=== PATIENT | male | born 1960 | race Caucasian/White ===

== ENCOUNTER 2018-12-14 00:09 | Emergency (ER) | payer MEDICAID, SELFPAY ==
[2018-12-14 00:12] VITALS: BP 192/88; PULSE 108; RESP 20; TEMP 36.6; O2SAT 98
--- NOTE | 2018-12-14 00:26 | W.ED.GENAD ---
Discharge Plan Disposition Patient Disposition: HOME Condition: Good Discharge Details Chief Complaint: GenMedical Clinical Impression: Elevated blood pressure reading with diagnosis of hypertension Primary Care Provider: Satish uRiz ED Provider: Kendall Moeller Meds and New Rx's Prescriptions: Continued aspirin [Aspir-81] 81 MG tablet,delayed release (DR/EC) 1 tab PO DAILY RF: 0 nitroglycerin [Nitrostat] 0.4 MG tablet, sublingual 1 tab PO PRN PRNRF: 0 lisinopril 30 MG tablet 1 tab PO DAILY RF: 0 metoprolol tartrate 25 MG tablet 50 tab PO DAILY RF: 0 multivitamin [One Daily] 1 EACH tablet 1 ea PO DAILY RF: 0 atorvastatin [Lipitor] 40 MG tablet 40 mg PO QPM RF: 0 Discharge Instructions Instructions: Hypertension (ED) Additional Instructions: Continue your current medications. Realize that blood pressure goes up with stress, anxiety, pain. Readings will also vary throughout the day and with activity. Follow-up with primary care next week if continue to get elevated readings. Return to ED if you develop headache, neurologic symptoms, chest pain, shortness of breath Referrals: Satish Ruiz [Primary Care Provider] - Medical Decision Making Patient's blood pressure is a little elevated here. However, he has an otherwise normal exam. His neurologic exam is normal. He is not having chest pain. An EKG is a slight sinus tachycardia. There is some inferior Q waves and some nonspecific ST changes but they are unchanged from previous EKG last year patient reassured. Blood pressure is coming down on its own without intervention. I think he is safe for discharge home to continue his current medications as before. Follow-up with primary care as needed next week if continues to have elevated pressures. Return to ED if he develops neurologic changes, chest pain, shortness of breath. ECG Data Attestation: I personally reviewed and interpreted this ECG (s) as follows: Prior ECG tracings: available for review Interpretation: Sinus tach at 103 normal axis and intervals. Nonspecific ST changes. Nothing acute HPI General Mode of arrival: ambulatory. Date/Time Provider Initiated Documentation: 12/14/18 00:26. Limitations to Documentation: no limitations. Information obtained by: patient. HPI Narrative: Patient presents to ED with complaint of high blood pressure. Patient reports taking his atorvastatin tonight. He inadvertently chewed it. Since that time his blood pressures been elevated. He does admit that he was concerned about chewing the pill. Other than feeling lightheaded he has no other symptoms. States taking his blood pressure was at home at the top number greater than 220. He actually just saw his primary care this week and his blood pressure was normal. Related Data Home Medications Medication Instructions Recorded Confirmed aspirin [Aspir-81] 1 tab PO DAILY 05/13/16 12/14/18 lisinopril 1 tab PO DAILY 05/13/16 12/14/18 metoprolol tartrate 50 tab PO DAILY 05/13/16 12/14/18 nitroglycerin [Nitrostat] 1 tab PO PRN PRN 05/13/16 12/14/18 atorvastatin [Lipitor] 40 mg PO QPM 01/15/17 12/14/18 multivitamin [One Daily] 1 ea PO DAILY 01/15/17 12/14/18 Allergies Allergy/AdvReac Type Severity Reaction Status Date / Time No Known Allergies Allergy Unverified 12/14/18 00:15 General Stated Complaint: GenMedical YULIANA: 4 Review of Systems Constitutional Denies chills, Denies fever(s), Denies headache(s) and Denies weakness Eyes Denies change in vision, Denies loss of vision and Denies eye pain ENT Denies vertigo, Denies dizziness, Denies headache(s) and Denies neck pain Cardiovascular Denies chest pain, Denies chest pain at rest, Denies syncope, Denies pedal edema, Denies edema, Denies irregular heart rhythm, Denies leg edema, Reports lightheadedness, Denies radiating jaw, neck or arm pain, Denies palpitations and Denies dyspnea Respiratory Denies cough and Denies dyspnea Gastrointestinal Denies abdominal pain, Denies nausea and Denies vomiting Musculoskeletal Denies neck pain and Denies numbness Neurologic Denies abnormal speech, Denies confusion, Denies vertigo, Denies dizziness, Denies syncope, Denies headache(s), Denies lack of coordination, Denies focal weakness, Denies loss of vision, Denies numbness, Denies other visual disturbances and Denies weakness Psychiatric Denies confusion Endocrine Denies palpitations [facility] Medical History CAD (coronary artery disease) (Chronic) HTN (hypertension) (Chronic) Hypercholesterolemia (Chronic) Surgical History Colonoscopy - IV Sedation (Inactive 01/15/17) Coronary Stent (Inactive) Tonsillectomy (Inactive) Social History Smoking/Tobacco Use Status: Former Tobacco Use Exam Const General: cooperative, comfortable and no acute distress Orientation: alert and oriented x3 Neck Neck: normal visual inspection, trachea midline and supple Resp Effort & Inspection: normal respiratory effort Auscultation: clear to auscultation bilaterally Cardio Rate: regular rate Rhythm: regular rhythm Heart Sounds: S1 normal and S2 normal Pulses: normal peripheral pulses Neuro General: alert, oriented x3, no focal motor deficits and CN's II-XI intact bilaterally Cognition: normal cognition Speech: speech normal Gait: normal gait Sensory Exam: no sensory deficits noted Course Vital Signs Temperature 97.9 F 12/14/18 00:12 Pulse 108 H 12/14/18 00:12 Respiratory Rate 20 12/14/18 00:12 Blood Pressure 192/88 H 12/14/18 00:12 Pulse Oximetry 98 12/14/18 00:12 Temperature 97.9 F 12/14/18 00:12 Temperature Source Temporal Artery Scan 12/14/18 00:12 Pulse 108 H 12/14/18 00:12 Respiratory Rate 20 12/14/18 00:12 Respiratory Effort Non-Labored 12/14/18 00:12 Blood Pressure 192/88 H 12/14/18 00:12 Blood Pressure Position Sitting 12/14/18 00:12 Pulse Oximetry 98 12/14/18 00:12 Oxygen Delivery Method Room Air 12/14/18 00:12 Oxygen Flow Rate 0 12/14/18 00:12 Pain Level 0 12/14/18 00:12
--- NOTE | 2018-12-14 00:39 | ED.GENADUL_ITS ---
Discharge Plan Disposition Patient Disposition: HOME Condition: Good Discharge Details Chief Complaint: GenMedical Clinical Impression: Elevated blood pressure reading with diagnosis of hypertension Primary Care Provider: Satish Ruiz ED Provider: Kendall Moeller Meds and New Rx's Prescriptions: Continued aspirin [Aspir-81] 81 MG tablet,delayed release (DR/EC) 1 tab PO DAILY RF: 0 nitroglycerin [Nitrostat] 0.4 MG tablet, sublingual 1 tab PO PRN PRNRF: 0 lisinopril 30 MG tablet 1 tab PO DAILY RF: 0 metoprolol tartrate 25 MG tablet 50 tab PO DAILY RF: 0 multivitamin [One Daily] 1 EACH tablet 1 ea PO DAILY RF: 0 atorvastatin [Lipitor] 40 MG tablet 40 mg PO QPM RF: 0 Discharge Instructions Instructions: Hypertension (ED) Additional Instructions: Continue your current medications. Realize that blood pressure goes up with stress, anxiety, pain. Readings will also vary throughout the day and with activity. Follow-up with primary care next week if continue to get elevated readings. Return to ED if you develop headache, neurologic symptoms, chest pain, shortness of breath Referrals: Satish Ruiz [Primary Care Provider] - Medical Decision Making Patient's blood pressure is a little elevated here. However, he has an otherwise normal exam. His neurologic exam is normal. He is not having chest pain. An EKG is a slight sinus tachycardia. There is some inferior Q waves and some nonspecific ST changes but they are unchanged from previous EKG last year patient reassured. Blood pressure is coming down on its own without intervention. I think he is safe for discharge home to continue his current medications as before. Follow-up with primary care as needed next week if continues to have elevated pressures. Return to ED if he develops neurologic changes, chest pain, shortness of breath. ECG Data Attestation: I personally reviewed and interpreted this ECG (s) as follows: Prior ECG tracings: available for review Interpretation: Sinus tach at 103 normal axis and intervals. Nonspecific ST changes. Nothing acute HPI General Mode of arrival: ambulatory . Date/Time Provider Initiated Documentation: 12/14/18 00:26 . Limitations to Documentation: no limitations . Information obtained by: patient . HPI Narrative: Patient presents to ED with complaint of high blood pressure. Patient reports taking his atorvastatin tonight. He inadvertently chewed it. Since that time his blood pressures been elevated. He does admit that he was concerned about chewing the pill. Other than feeling lightheaded he has no other symptoms. States taking his blood pressure was at home at the top number greater than 220. He actually just saw his primary care this week and his blood pressure was normal. Related Data Home Medications Medication Instructions Recorded Confirmed aspirin [Aspir-81] 1 tab PO DAILY 05/13/16 12/14/18 lisinopril 1 tab PO DAILY 05/13/16 12/14/18 metoprolol tartrate 50 tab PO DAILY 05/13/16 12/14/18 nitroglycerin [Nitrostat] 1 tab PO PRN PRN 05/13/16 12/14/18 atorvastatin [Lipitor] 40 mg PO QPM 01/15/17 12/14/18 multivitamin [One Daily] 1 ea PO DAILY 01/15/17 12/14/18 Allergies Allergy/AdvReac Type Severity Reaction Status Date / Time No Known Allergies Allergy Unverified 12/14/18 00:15 General Stated Complaint: GenMedical YULIANA: 4 Review of Systems Constitutional Denies chills, Denies fever(s), Denies headache(s) and Denies weakness Eyes Denies change in vision, Denies loss of vision and Denies eye pain ENT Denies vertigo, Denies dizziness, Denies headache(s) and Denies neck pain Cardiovascular Denies chest pain, Denies chest pain at rest, Denies syncope, Denies pedal edema, Denies edema, Denies irregular heart rhythm, Denies leg edema, Reports lightheadedness, Denies radiating jaw, neck or arm pain, Denies palpitations and Denies dyspnea Respiratory Denies cough and Denies dyspnea Gastrointestinal Denies abdominal pain, Denies nausea and Denies vomiting Musculoskeletal Denies neck pain and Denies numbness Neurologic Denies abnormal speech, Denies confusion, Denies vertigo, Denies dizziness, Denies syncope, Denies headache(s), Denies lack of coordination, Denies focal weakness, Denies loss of vision, Denies numbness, Denies other visual disturbances and Denies weakness Psychiatric Denies confusion Endocrine Denies palpitations [facility] Medical History CAD (coronary artery disease) (Chronic) HTN (hypertension) (Chronic) Hypercholesterolemia (Chronic) Surgical History Colonoscopy - IV Sedation (Inactive 01/15/17) Coronary Stent (Inactive) Tonsillectomy (Inactive) Social History Smoking/Tobacco Use Status: Former Tobacco Use Exam Const General: cooperative, comfortable and no acute distress Orientation: alert and oriented x3 Neck Neck: normal visual inspection, trachea midline and supple Resp Effort & Inspection: normal respiratory effort Auscultation: clear to auscultation bilaterally Cardio Rate: regular rate Rhythm: regular rhythm Heart Sounds: S1 normal and S2 normal Pulses: normal peripheral pulses Neuro General: alert, oriented x3, no focal motor deficits and CN's II-XI intact bilaterally Cognition: normal cognition Speech: speech normal Gait: normal gait Sensory Exam: no sensory deficits noted Course Vital Signs Temperature 97.9 F 12/14/18 00:12 Pulse 108 H 12/14/18 00:12 Respiratory Rate 20 12/14/18 00:12 Blood Pressure 192/88 H 12/14/18 00:12 Pulse Oximetry 98 12/14/18 00:12 Temperature 97.9 F 12/14/18 00:12 Temperature Source Temporal Artery Scan 12/14/18 00:12 Pulse 108 H 12/14/18 00:12 Respiratory Rate 20 12/14/18 00:12 Respiratory Effort Non-Labored 12/14/18 00:12 Blood Pressure 192/88 H 12/14/18 00:12 Blood Pressure Position Sitting 12/14/18 00:12 Pulse Oximetry 98 12/14/18 00:12 Oxygen Delivery Method Room Air 12/14/18 00:12 Oxygen Flow Rate 0 12/14/18 00:12 Pain Level 0 12/14/18 00:12
[2018-12-14 00:46] VITALS: BP 170/82; PULSE 96; RESP 18; O2SAT 98
[2018-12-14 00:49] VITALS: BP 142/85; PULSE 96; RESP 18; TEMP 36.6; O2SAT 98
== END 2018-12-14 00:54 | disposition home or self-care (01) ==
LOC: ER 00:55
PROVIDERS: Emergency Provider Emergency Medicine; PCP Family Medicine
DX: R03.0 Elevated blood-pressure reading, without diagnosis of hypertension (principal); R00.0 Tachycardia, unspecified; Z87.891 Personal history of nicotine dependence
CPT/HCPCS: 93005; 99283; 93010

== ENCOUNTER 2019-12-13 13:46 | Outpatient (REF) | payer MEDICAID, SELFPAY ==
[2019-12-13 19:29] LABS: Anion Gap 8.9 mmol/L (3-11); BUN 9 mg/dL (7-18); CO2 29.1 mmol/L (21.0-32.0); CREATININE 0.92 mg/dL (0.70-1.30); Calcium 8.8 mg/dL (8.5-10.1); Chloride 94 mmol/L (98-107); Glucose 98 mg/dL (74-106); Potassium 3.9 mmol/L (3.5-5.1); Sodium 132 mmol/L (136-145)
== END 2019-12-13 14:06 ==
LOC: NCHCN 13:46
PROVIDERS: PCP Family Medicine; Visit Provider Family Medicine
DX: I10 Essential (primary) hypertension (principal); Z00.00 Encounter for general adult medical examination without abnormal findings
CPT/HCPCS: 80048

== ENCOUNTER 2020-05-30 14:53 | Inpatient (IN) | payer MEDICAID, SELFPAY ==
[2020-05-30] VITALS (76 sets, daily range): BP systolic 100–163; BP diastolic 46–88; PULSE 73–126; RESP 6–20; TEMP 36.6; O2SAT 93–100
--- NOTE | 2020-05-30 15:00 | DI.RAD_ITS ---
EXAM: XR PORTABLE CHEST AP CLINICAL HISTORY: Chest pain TECHNIQUE: 2D digital imaging was performed. COMPARISON: No exams were available for comparison FINDINGS: MEDIASTINUM: Normal. HEART: Normal. PULMONARY VASCULATURE: Normal. LUNGS: Clear. PLEURAL SPACE: No pleural effusion or pneumothorax. BONE:Normal. OTHER FINDINGS:Monitoring equipment is seen overlying the left hemithorax. IMPRESSION: No acute pulmonary findings. DATA REPOSITORY: RADIATION DOSE DELIVERED:
[2020-05-30 15:13] LABS: Basophils % 0.1; Eosinophils % 0.1; HCT 42.6 % (40.0-50.0); HGB 15.1 g/dL (13.5-17.5); Immature Grans % 0.4 %; Lymphocytes % 12.3; Mean Corp. HGB Concentration 35.4 g/dL (32.0-36.0); Mean Corpuscular Hemoglobin 32.2 pg (27.0-33.0); Mean Corpuscular Volume 90.8 fL (80-95); Mean Platelet Volume 8.2 fL (8.0-11.0); Monocytes % 9.3; Neutrophils % 77.8; Platelet Count 458 x1000/uL (130-400); RBC 4.69 m/cumm (4.50-6.00); RBC Distribution Width 12.9 % (11.8-14.1); White Blood Cell Count 22.27 k/cumm (4.4-10.8)
--- NOTE | 2020-05-30 15:20 | W.ED.GENAD ---
Discharge Plan Disposition Patient Disposition: [facility] INPATIENT Condition: Critical Discharge Details Chief Complaint: Chest Pain Clinical Impression: Chest pain, Arrhythmia, Hypokalemia Primary Care Provider: Satish Ruiz ED Provider: Kyle Schmidt Home Meds and New Rx's Prescriptions: No Action aspirin [Aspir-81] 81 MG tablet,delayed release (DR/EC) 1 tab PO DAILY RF: 0 nitroglycerin [Nitrostat] 0.4 MG tablet, sublingual 1 tab PO PRN PRNRF: 0 lisinopril 30 MG tablet 1 tab PO DAILY RF: 0 metoprolol tartrate 25 MG tablet 50 tab PO DAILY RF: 0 multivitamin [One Daily] 1 EACH tablet 1 ea PO DAILY RF: 0 atorvastatin [Lipitor] 40 MG tablet 40 mg PO QPM RF: 0 Medical Decision Making 1523??59-year-old male with history of coronary artery disease status post remote stent 5 years ago, hypercholesterolemia, hypertension, here with chest pain improved with nitroglycerin and palpitations. Screening ECG was reviewed and interpreted by me: Wide-complex tachycardia, appears to be SVT with aberrancy and PVCs versus polymorphic V. tach. I reviewed rhythm strip on cardiac monitor technician and there appears to be more of a sinus appearing rhythm with intermittent runs of polymorphic wide-complex tachycardia. I called and spoke with Dr. Kolb, on-call solder cream maker, we discussed ED presentation, he reviewed ECG and old ECG for comparison and recommended holding amiodarone at this time and giving a dose of Lopressor. Lopressor 2.5 mg IV to be administered. Third for acute coronary syndrome. I will check troponin. 1538 --x-ray was reviewed and interpreted by me: Normal mediastinum, no pneumothorax, nondiagnostic. patient now complaining of 3 out of 10 chest pressure. Blood pressure 113 systolic. I will give crystalloid bolus 250 mL and plan to start nitroglycerin infusion as well as heparin infusion. Patient took aspirin 81 mg prior to arrival. I will give additional aspirin to complete full dose and Plavix 600 mg. Call to [facility] to request transfer. 1625 --initial troponin is negative. Patient reassessed and pain improved. Blood pressure has decreased. Patient receiving crystalloid 500 mL bolus. Nitroglycerin infusion has been titrated down. I spoke with on-call underwater photographer Dr. Soria and discussed ED presentation and course including available diagnostics. ECGs were sent for review. Dr. Soria will accept patient in transfer but notes bed not currently available and recommends holding here until bed available. I called and spoke with the hospitalist on-call, Dr. Aguillon, and discussed ED presentation and course, he will evaluate the patient for admission pending transfer to [facility]. 1645??spoke again with Dr. Soria at [facility] who notes after review with human performance technologist she feels rhythm likely SVT versus flutter with a Kramer C. She agrees with continued treatment for potential ACS, trend troponin. She recommends if blood pressure will tolerate starting low-dose oral metoprolol. Blood pressures currently low normal. Will hold beta-vaishnavi and plan for dosing when BP can tolerate. HPI General Mode of arrival: ambulatory. Date/Time Provider Initiated Documentation: 05/30/20 15:01. Limitations to Documentation: no limitations. Information obtained by: patient. HPI Narrative: 59-year-old male with history of coronary artery disease status post stent approximately 5 years ago, hypertension, hypercholesterolemia, former smoker, presents with chief complaint of chest pain. Patient notes pain started early this morning and has been intermittent since onset. Patient took sublingual nitroglycerin approximately 20 minutes prior to arrival which did seem to help his pain. He did have an episode of palpitations after taking nitroglycerin. He continues to have mild central chest pain at this time. He has no associated shortness of breath. No leg swelling or calf pain. Related Data Home Medications Medication Instructions Recorded Confirmed aspirin [Aspir-81] 1 tab PO DAILY 05/13/16 05/30/20 lisinopril 1 tab PO DAILY 05/13/16 05/30/20 metoprolol tartrate 50 tab PO DAILY 05/13/16 05/30/20 nitroglycerin [Nitrostat] 1 tab PO PRN PRN 05/13/16 05/30/20 atorvastatin [Lipitor] 40 mg PO QPM 01/15/17 05/30/20 multivitamin [One Daily] 1 ea PO DAILY 01/15/17 05/30/20 Allergies Allergy/AdvReac Type Severity Reaction Status Date / Time No Known Allergies Allergy Unverified 05/30/20 15:07 General Stated Complaint: Chest Pain YULIANA: 2 Review of Systems All systems reviewed & are unremarkable except as noted in HPI and below Constitutional Constitutional: Denies fever(s) Cardiovascular Cardiovascular: Reports chest pain and Denies dyspnea Respiratory Respiratory: Denies dyspnea [facility] Medical History CAD (coronary artery disease) (Chronic) HTN (hypertension) (Chronic) Hypercholesterolemia (Chronic) Surgical History Colonoscopy - IV Sedation (Inactive 01/15/17) Coronary Stent (Inactive) Tonsillectomy (Inactive) Social History Smoking/Tobacco Use Status: Former Tobacco Use Alcohol Intake: former Drug use: Never Substance use type: does not use and former substance user Do you feel safe in your relationship?: Yes Exam Const General: cooperative and no acute distress HENMT Mouth: moist mucous membranes Eyes Conjunctivae: normal conjunctivae Sclera: normal sclerae Neck Neck: trachea midline and supple Resp Auscultation: clear to auscultation bilaterally, no rales, no rhonchi and no wheezes Cardio Jugular venous pressure: no JVD Rate: tachycardic Rhythm: abnormal rhythm GI Palpation: soft, not firm, no guarding, no masses, not rigid and nontender Skin General skin exam: no rashes or lesions noted Neuro General: patient alert, patient awake, patient oriented x3 and tone normal Extrem General: no calf tenderness and no edema Psych Appearance: grossly normal Mental Status: mental status grossly normal Speech and Movement: speech and movement normal Course Vital Signs Vital signs: Vital Signs Temperature 36.6 C 05/30/20 14:57 Pulse 118 H 05/30/20 14:57 Respiratory Rate 15 05/30/20 14:57 Blood Pressure 146/88 H 05/30/20 14:57 Pulse Oximetry 99 05/30/20 14:57 Temperature 36.6 C 05/30/20 14:57 Temperature Source Skin 05/30/20 14:57 Pulse 118 H 05/30/20 14:57 Respiratory Rate 15 05/30/20 14:57 Respiratory Effort 05/30/20 15:14 Blood Pressure 146/88 H 05/30/20 14:57 Blood Pressure Position Sitting 05/30/20 14:57 Pulse Oximetry 99 05/30/20 14:57 Oxygen Delivery Method Room Air 05/30/20 14:57 Oxygen Flow Rate 0 05/30/20 14:57 Pain Level 0 05/30/20 14:57 Critical Care Time Critical Care Time Critical Care Time: Yes Total Critical Care Time: 65 Attestation: I spent greater than 65 minutes addressing this patient's immediate life threats. Please see MDM section of note. This time was spent engaged in work directly related to the patient's care, exclusive of separate procedures, and failure to initiate these interventions would have likely resulted in clinically significant or life threatening deterioration in the patient's condition.
[2020-05-30] MEDS: Metoprolol 5 MG/5 ML VIAL 2.5 MG IVP (15:25)
[2020-05-30 15:38] LABS: ALT 48 U/L (16-63); AST 24 U/L (15-37); Albumin 4.1 g/dL (3.4-5.0); Alkaline Phosphatase 109 U/L (46-116); Anion Gap 14.6 mmol/L (3-11); BUN 13 mg/dL (7-18); Bilirubin, Total 0.6 mg/dL (0.2-1.0); CO2 23.4 mmol/L (21.0-32.0); Calcium 8.3 mg/dL (8.5-10.1); Chloride 90 mmol/L (98-107); Glucose 149 mg/dL (74-106); Magnesium 1.8 mg/dL (1.8-2.4); Sodium 128 mmol/L (136-145); Total Protein 7.3 g/dL (6.4-8.2); Troponin I < 0.05 ng/mL (<0.06)
[2020-05-30] MEDS: Aspirin 81 MG CHEW 243 MG PO (15:47)
[2020-05-30] MEDS: Clopidogrel 300 MG TAB 600 MG PO (15:47)
[2020-05-30] MEDS: POTASSIUM CHLORIDE 20 MEQ/100 ML BAG 50 MEQ IVPB (16:06)
[2020-05-30] MEDS: Normal Saline 500 ML IV (16:30)
[2020-05-30 16:35] LABS: Absolute Basophil Count 0.02 k/cumm (0.0-0.2); Absolute Eosinophil Count 0.02 k/cumm (0.0-0.7); Absolute Lymphocyte Count 2.74 k/cumm (1.2-3.4); Absolute Monocyte Count 2.07 k/cumm (0.11-0.7); Absolute Neutrophil Count 17.33 k/cumm (1.2-6.7); Diff Comment Diff Reviewed; RBC Morphology Normal
--- NOTE | 2020-05-30 17:07 | W.PM.HP.N ---
Date of service: 05/30/20 Time of Service: 17:18 Assessment and Plan Assessment and plan (1) Chest pain: Status: Acute Assessment and plan: H/O CAD Pain coronary related vs arrhythmia related. Cont heparin drip. Serial troponins Nitroglycerin drip; consider weaning off. Given ASA and loading dose of 600mg Plavix. Accept for transfer at [facility] when bed available. (2) Arrhythmia: Status: Acute Assessment and plan: SVT resolved after IV Lopressor. Telemetry monitoring. (3) Hypokalemia: Status: Acute Assessment and plan: IV replacement initiated in the ED (4) Hyponatremia: Status: Acute Assessment and plan: Unclear etiology. Give NS Recheck in AM (5) Leukocytosis, unspecified: Status: Acute Assessment and plan: Etiology unclear. No evidence of infection. No fever/chills, dysuria, cough. CXR normal Repeat in AM History of Present Illness History of Present Illness Chief Complaint: CP Narrative: This is a 59 yo male with a PMH of CAD with stent 5 years ago, HLD, HTN. He reported substernal pain that began early in the AM on the day of admission. The pain was intermittent. He took a SL nitroglycerin appx 20 mins prior to arrival. This helped his pain. He then noted palpitations. No SOA, pedal edema, diaphoreses, N/V. His EKG should wide-complex tachycardia. ED physician discussed this with cardiology at , Dr Soria, and this was thought to be SVT with aberrancy with intermittent PVCs. He was given 2.5mg IV lopressor and he converted to a normal sinus rhythm with a rate in the 90's with occasional PVCs. Cardiology, Dr. Jean Baptiste, recommended starting a nitro drip and a heparin drip; both initiated in the ED. He became CP free. Initial troponin negative. 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 Review of Systems All systems reviewed & are unremarkable except as noted in HPI and below PFSH Medical History CAD (coronary artery disease) (Chronic) HTN (hypertension) (Chronic) Hypercholesterolemia (Chronic) Surgical History Colonoscopy - IV Sedation (Inactive 01/15/17) Coronary Stent (Inactive) Tonsillectomy (Inactive) Social History Smoking/Tobacco Use Status: Former Tobacco Use Alcohol Intake: former Drug use: Never Substance use type: does not use and former substance user Do you feel safe in your relationship?: Yes Meds Home Medications and Allergies Home Medications Medication Instructions Recorded Confirmed Type aspirin [Aspir-81] 1 tab PO DAILY 05/13/16 05/30/20 History lisinopril 1 tab PO DAILY 05/13/16 05/30/20 History metoprolol tartrate 50 tab PO DAILY 05/13/16 05/30/20 History nitroglycerin [Nitrostat] 1 tab PO PRN PRN 05/13/16 05/30/20 History atorvastatin [Lipitor] 40 mg PO QPM 01/15/17 05/30/20 History multivitamin [One Daily] 1 ea PO DAILY 01/15/17 05/30/20 History Allergies Allergy/AdvReac Type Severity Reaction Status Date / Time No Known Allergies Allergy Unverified 05/30/20 15:07 Exam Narrative Exam Narrative: Pt lying supine. NAD Const General: cooperative Orientation: alert and oriented x3 Eyes Sclera: sclerae normal EOM: EOM intact bilaterally Neck Neck: normal visual inspection and full ROM Resp Effort & Inspection: normal respiratory effort Auscultation: clear to auscultation bilaterally Cardio Jugular venous pressure: no JVD Rate: tachycardic Rhythm: regular rhythm Heart Sounds: S1 normal and S2 normal GI Inspection: non-distended Palpation: soft Auscultation: normal bowel sounds Skin General skin exam: no rashes or lesions noted Neuro General: patient alert and patient oriented x3 Cognition: normal cognition Speech: speech normal Extrem General: normal to inspection and no clubbing, cyanosis or edema Psych Appearance: grossly normal Mental Status: mental status grossly normal Speech and Movement: speech and movement normal Mood: congruent mood Affect: normal affect Results Labs Result diagrams: 05/30/20 15:05 05/30/20 15:05 Labs: Laboratory Results - last 24 hr 05/30/20 05/30/20 15:05 15:05 WBC 22.27 H RBC 4.69 Hgb 15.1 Hct 42.6 MCV 90.8 MCH 32.2 MCHC 35.4 RDW 12.9 Plt Count 458 H MPV 8.2 Immature Gran % 0.4 Neutrophils % 77.8 Lymphocytes % 12.3 Monocytes % 9.3 Eosinophils % 0.1 Basophils % 0.1 Absolute Neutrophils 17.33 H Absolute Lymphocytes 2.74 Absolute Monocytes 2.07 H Absolute Eosinophils 0.02 Absolute Basophils 0.02 Differential Comment Diff reviewed RBC Morphology Normal Sodium 128 L Potassium 3.0 L Chloride 90 L Carbon Dioxide 23.4 Anion Gap 14.6 H BUN 13 Creatinine 1.00 Estimated GFR/1.73 m2 >= 60.00 Glucose 149 H Calcium 8.3 L Magnesium 1.8 Total Bilirubin 0.6 AST 24 ALT 48 Alkaline Phosphatase 109 Troponin I < 0.05 Total Protein 7.3 Albumin 4.1 Last Vital Signs Temp 36.6 C 05/30/20 14:57 Pulse 96 H 05/30/20 16:31 Resp 8 L 05/30/20 16:31 BP 106/66 05/30/20 16:31 Pulse Ox 98 05/30/20 16:31 COVID-19 Screening Have you, or has anyone in your household, traveled outside of [place] in the last 14 days?: NO Had IN PERSON contact w/suspected or confirmed C-19 person: No
[2020-05-30 17:39] LABS: TSH 0.61 uIU/mL (0.36-3.74)
[2020-05-30 18:38] LABS: Troponin I < 0.05 ng/mL (<0.06)
[2020-05-30] MEDS: Atorvastatin 40 MG TAB PO (19:48)
[2020-05-30] MEDS: Normal Saline 1,000 ML 30 ML IV (19:49)
[2020-05-30] MEDS: Potassium Chloride 20 MEQ TABCR PO (19:49)
--- NOTE | 2020-05-30 19:51 | DSE_ITS ---
Date of service: 05/30/20 Time of Service: 19:58 DS: Diagnosis Discharge Diagnosis (1) Chest pain: Status: Acute Asessment and Plan: First two sets of troponin I were normal. His CP is down to 1/10 and he is stable on NTG drip at 5 mcg/minute and heparin drip at 1000 units/hr. Plan is for transfer to cardiology at [facility] to care of Dr. Conrado Atkins. (2) Arrhythmia: Status: Acute Asessment and Plan: patient presented w/ wide complex regular tachycardia at 149 bpm w/ isolated PVC's. Review of EKG suggests PSVT w/ aberrancy. Rate and rhythm responded to iv metoprolol and he remains in NSR in the 70's. (3) Hypokalemia: Status: Acute Asessment and Plan: treated w/ iv and oral potassium. repeat potassium level is pending. (4) Hyponatremia: Status: Acute Asessment and Plan: unclear etiology. No hx of diuretic use. BUN and creatinine are not elevated to suggest any YARA. Etiology to be determined. (5) Leukocytosis, unspecified: Status: Acute Asessment and Plan: unclear etiology. May be leukemoid reaction to CP episode. He remains afebrile. The WBC elevation appears to be primarily neutrophilic. No other evidence for infectious cause. Repeat CBC was ordered for the a.m. but now will have to be worked up while at [facility]. Discharge Plan Disposition Patient Disposition: [facility] Condition: Critical Discharge Details Chief Complaint: Chest Pain Clinical Impression: Chest pain, Arrhythmia, Hypokalemia Reason For Visit: CHEST PAIN, ARRHYTHMIA Admit Date/Time: 05/30/20 16:59 Admit Provider: Juanito Aguillon Attending Provider: Juanito Aguillon Primary Care Provider: Satish Ruiz ED Provider: Kyle Schmidt Hospital Course Hospital Course: 59-year-old male with a history of coronary artery disease with prior inferior wall myocardial infarction treated w/ thrombolytic thereapy at [facility] and subsequent coronary stenting w/ bare metal stent to RCA was performed in December 2012. He presented to the emergency department with complaints of acute onset of chest pain that began early this morning and is been intermittent and recurring with partial relief with sublingual nitroglycerin and subsequent symptoms of palpitations. On arrival to the emergency department he was noted to be in a wide-complex tachycardia which after was reviewed by Dr. Schmidt, emergency room attending we then discussed the case with Dr. Dax Stover director food and beverage as well as with Dr. Soria from [facility] he was felt to be a supraventricular tachycardia with aberrancy. Patient responded to IV Lopressor which brought his heart rate under control for rate of 149 bpm down to a sinus rhythm at a rate of 97 bpm with occasional PVCs. His repeat ECG demonstrates Q waves in the inferior leads consistent with a prior inferior wall infarct seen on previous ECGs but no acute ST changes. His first troponin was negative. Patient was started on a heparin drip and nitroglycerin drip and given Plavix and aspirin and admitted to [facility] pending transfer to [facility]. Patient had only been admitted to the intensive care unit for couple hours when a bed became available at [facility]. Patient is now being transferred for further cardiology care under the auspice of Dr. Conrado Atkins. Patient's chest pain is currently a 1 out of 10 and he is back on his nitroglycerin drip at 5 mcg/min. Nitroglycerin drip had to be interrupted due to transient low blood pressure readings which responded to fluid boluses. His second troponin I level taken 3 hours after admission remains within normal limits at less than 0.05. His rhythm remains sinus rhythm at a rate of 73 bpm and his blood pressure is now 103/65. His respirations are nonlabored at 16 breaths/min and his oxygen saturation is 99% on room air. Other notable findings include presenting labs w/ hypokalemia (K+ of 3.0 despite not being on diuretics), hyponatremia (sodium 128), low normal magnesium of 1.8, and leukocytosis of 22,000 w/ 17,000 neutrophils but no fever or signs/symptoms of infectious cause. Potassium was treated w/ oral and iv potassium supplementation. Home Meds and New Rx's Prescriptions: No Action aspirin [Aspir-81] 81 MG tablet,delayed release (DR/EC) 1 tab PO DAILY RF: 0 nitroglycerin [Nitrostat] 0.4 MG tablet, sublingual 1 tab PO PRN PRNRF: 0 lisinopril 30 MG tablet 1 tab PO DAILY RF: 0 metoprolol tartrate 25 MG tablet 50 tab PO DAILY RF: 0 multivitamin [One Daily] 1 EACH tablet 1 ea PO DAILY RF: 0 atorvastatin [Lipitor] 40 MG tablet 40 mg PO QPM RF: 0 Discharge Instructions Instructions: Supraventricular Tachycardia (DC), Chest Pain (DC) Activity:: bedrest Diet:: As Tolerated Discharge Orders Discharge Orders: Discharge Order (Routine); Ordered 05/30/20 Ordered By: Jeffrey Miller DS: Summary Status at Discharge Functional status at discharge: independent ambulation Overall status at discharge: patient is not back to baseline Mental Status: mental status grossly normal Speech and Movement: speech and movement normal Mood: congruent mood Affect: normal affect Time Spent with Patient providing and/or coordinating discharge services: Less than 30 minutes Exam Narrative Exam Narrative: see H&P Psych Mental Status: mental status grossly normal Speech and Movement: speech and movement normal Mood: congruent mood Affect: normal affect DS: Data Vitals/I&O Vitals and I&O: Vital Signs Temperature 36.6 C 05/30/20 17:45 Temperature Source Temporal Artery Scan 05/30/20 17:45 Pulse 73 05/30/20 19:21 Pulse 82 05/30/20 19:21 Respiratory Rate 16 05/30/20 19:21 Respiratory Effort Non-Labored 05/30/20 17:45 Respiratory Depth Normal 05/30/20 17:45 Respiratory Pattern Normal 05/30/20 17:45 Blood Pressure 103/65 05/30/20 19:21 Blood Pressure Mean 71 05/30/20 19:21 Blood Pressure Position Sitting 05/30/20 14:57 Pulse Oximetry 99 05/30/20 19:21 Oxygen Delivery Method Room Air 05/30/20 17:45 Oxygen Flow Rate 0 05/30/20 17:45 Pain Level 1 05/30/20 19:07 Intake & Output 05/29/20 05/30/20 05/30/20 23:59 11:59 23:59 Intake Total 601.975 / 601.975 Balance 601.975 / 601.975 Weight 113.398 kg Intake: IV 601.975 / 601.975 Data Completed and Pending Labs on day of discharge: Labs from last 24 hours 05/30/20 05/30/20 05/30/20 22:00 18:05 17:01 WBC RBC Hgb Hct MCV MCH MCHC RDW Plt Count MPV Immature Gran % Neutrophils % Lymphocytes % Monocytes % Eosinophils % Basophils % Absolute Neutrophils Absolute Lymphocytes Absolute Monocytes Absolute Eosinophils Absolute Basophils Differential Comment RBC Morphology Sodium Potassium Chloride Carbon Dioxide Anion Gap BUN Creatinine Estimated GFR/1.73 m2 Glucose Calcium Magnesium Total Bilirubin AST ALT Alkaline Phosphatase Troponin I Pending < 0.05 Total Protein Albumin TSH COVID-19 PCR Pending Nasopharyn COVID-19 PCR Pending Ref Test Perform Site Pending 05/30/20 05/30/20 05/30/20 15:05 15:05 15:05 WBC 22.27 H RBC 4.69 Hgb 15.1 Hct 42.6 MCV 90.8 MCH 32.2 MCHC 35.4 RDW 12.9 Plt Count 458 H MPV 8.2 Immature Gran % 0.4 Neutrophils % 77.8 Lymphocytes % 12.3 Monocytes % 9.3 Eosinophils % 0.1 Basophils % 0.1 Absolute Neutrophils 17.33 H Absolute Lymphocytes 2.74 Absolute Monocytes 2.07 H Absolute Eosinophils 0.02 Absolute Basophils 0.02 Differential Comment Diff reviewed RBC Morphology Normal Sodium 128 L Potassium 3.0 L Chloride 90 L Carbon Dioxide 23.4 Anion Gap 14.6 H BUN 13 Creatinine 1.00 Estimated GFR/1.73 m2 >= 60.00 Glucose 149 H Calcium 8.3 L Magnesium 1.8 Total Bilirubin 0.6 AST 24 ALT 48 Alkaline Phosphatase 109 Troponin I < 0.05 Total Protein 7.3 Albumin 4.1 TSH 0.61 COVID-19 PCR Nasopharyn COVID-19 PCR Ref Test Perform Site [facility] Medical History CAD (coronary artery disease) (Chronic) HTN (hypertension) (Chronic) Hypercholesterolemia (Chronic) Surgical History Colonoscopy - IV Sedation (Inactive 01/15/17) Coronary Stent (Inactive) Tonsillectomy (Inactive) Social History Smoking/Tobacco Use Status: Former Tobacco Use Alcohol Intake: former Drug use: Never Substance use type: does not use and former substance user Do you feel safe in your relationship?: Yes
[2020-05-30 20:47] LABS: Potassium 3.3 mmol/L (3.5-5.1)
[2020-05-31 10:55] LABS: COVID-19 RT-PCR UVMMC Result Negative (Negative)
== END 2020-05-30 20:57 | disposition short-term general hospital (02) | DRG 309 ==
LOC: ER 16:39 → ICU 17:44
PROVIDERS: Internal Medicine; Registered Nurse Emergency; Admitting Provider Family Medicine; Emergency Provider Student in an Organized Health Care Education/Training Program; PCP Family Medicine; Visit Provider Family Medicine
DX: I47.1 Supraventricular tachycardia (principal); E87.1 Hypo-osmolality and hyponatremia; R07.9 Chest pain, unspecified; E87.6 Hypokalemia; Z79.82 Long term (current) use of aspirin; I25.10 Atherosclerotic heart disease of native coronary artery without angina pectoris; Z95.5 Presence of coronary angioplasty implant and graft; E78.00 Pure hypercholesterolemia, unspecified; I10 Essential (primary) hypertension; Z87.891 Personal history of nicotine dependence; D72.829 Elevated white blood cell count, unspecified
CPT/HCPCS: 36415; 80053; 93005; 96365; 96366; 96368; 96376; 99223; 99238; 99291; U0003; 71045; 83735; 84132; 84443; 84484; 85025; 93010; J3480

== ENCOUNTER 2020-06-11 20:42 | Outpatient (REF) | payer MEDICAID, SELFPAY ==
[2020-06-11 19:47] LABS: Abs Immature Grans 0.08 k/cumm (0.0-0.09); Absolute Basophil Count 0.02 k/cumm (0.0-0.2); Absolute Lymphocyte Count 1.96 k/cumm (1.2-3.4); Absolute Monocyte Count 1.51 k/cumm (0.11-0.7); Basophils % 0.1; Eosinophils % 0.2; HGB 14.4 g/dL (13.5-17.5); Immature Grans % 0.5 %; Lymphocytes % 11.9; Mean Corp. HGB Concentration 35.1 g/dL (32.0-36.0); Mean Corpuscular Hemoglobin 32.4 pg (27.0-33.0); Mean Corpuscular Volume 92.1 fL (80-95); Mean Platelet Volume 8.9 fL (8.0-11.0); Monocytes % 9.2; Neutrophils % 78.1; Platelet Count 462 x1000/uL (130-400); RBC 4.45 m/cumm (4.50-6.00); White Blood Cell Count 16.45 k/cumm (4.4-10.8)
[2020-06-11 20:01] LABS: Absolute Eosinophil Count 0.03 k/cumm (0.0-0.7); Absolute Neutrophil Count 12.85 k/cumm (1.2-6.7)
[2020-06-11 20:09] LABS: Anion Gap 9.7 mmol/L (3-11); BUN 10 mg/dL (7-18); CO2 27.3 mmol/L (21.0-32.0); CREATININE 0.86 mg/dL (0.70-1.30); Calcium 8.6 mg/dL (8.5-10.1); Chloride 91 mmol/L (98-107); Glucose 97 mg/dL (74-106); Magnesium 1.8 mg/dL (1.8-2.4); Potassium 3.7 mmol/L (3.5-5.1); Sodium 128 mmol/L (136-145)
== END 2020-06-11 21:02 ==
LOC: NCHCN 20:42
PROVIDERS: PCP Family Medicine; Visit Provider Family Medicine
DX: E87.6 Hypokalemia (principal); D72.829 Elevated white blood cell count, unspecified; K92.1 Melena
CPT/HCPCS: 80048; 83735; 85025

== ENCOUNTER 2020-07-16 18:52 | Outpatient (REF) | payer MEDICAID, SELFPAY ==
[2020-07-16 19:58] LABS: Anion Gap 13.9 mmol/L (3-11); BUN 10 mg/dL (7-18); CO2 24.1 mmol/L (21.0-32.0); CREATININE 0.79 mg/dL (0.70-1.30); Calcium 8.4 mg/dL (8.5-10.1); Chloride 96 mmol/L (98-107); Glucose 103 mg/dL (74-106); Potassium 3.5 mmol/L (3.5-5.1); Sodium 134 mmol/L (136-145)
[2020-07-16 20:09] LABS: Sodium, Urine 33 mmol/L
[2020-07-17 16:37] LABS: Osmolality, Urine 137 mOsm/kg (150-1,150)
== END 2020-07-16 19:12 ==
LOC: NCHCN 18:52
PROVIDERS: PCP Family Medicine; Visit Provider Family Medicine
DX: E87.1 Hypo-osmolality and hyponatremia (principal)
CPT/HCPCS: 80048; 83935; 84300

== ENCOUNTER 2020-09-10 12:19 | Outpatient (REF) | payer MEDICAID, SELFPAY ==
[2020-09-10 18:31] LABS: Abs Immature Grans 0.05 10^3/uL (0.0-0.06); Absolute Basophil Count 0.03 10^3/uL (0.0-0.2); Absolute Lymphocyte Count 1.56 10^3/uL (1.2-3.4); Absolute Monocyte Count 1.02 10^3/uL (0.1-0.8); Absolute Neutrophil Count 10.34 10^3/uL (1.2-6.7); Basophils % 0.2; Eosinophils % 0.2; HCT 46.7 % (40.0-50.0); HGB 15.9 g/dL (13.5-17.5); Immature Grans % 0.4; MCH 31.9 pg (27.0-33.0); MCV 93.6 fL (80-95); MPV 8.9 fL (8.0-11.0); Monocytes % 7.8; Neutrophils % 79.4; Nucleated RBC 0 %; Platelet Count 375 10^3/uL (130-400); RBC 4.99 10^6/uL (4.36-5.78); RDW 12.2 % (11.8-14.1); RDW-SD 42.4 fL; WBC 13.02 10^3/uL (4.4-10.8)
[2020-09-10 18:32] LABS: Absolute Eosinophil Count 0.03 10^3/uL (0.0-0.7)
[2020-09-10 18:57] LABS: Anion Gap 8.1 mmol/L (3-11); BUN 11 mg/dL (7-18); CO2 28.9 mmol/L (21.0-32.0); CREATININE 1.01 mg/dL (0.70-1.30); Chloride 95 mmol/L (98-107); Glucose 108 mg/dL (74-106); Potassium 4.1 mmol/L (3.5-5.1); Sodium 132 mmol/L (136-145)
== END 2020-09-10 12:39 ==
LOC: NCHCN 12:19
PROVIDERS: PCP Family Medicine; Visit Provider Family Medicine
DX: E87.1 Hypo-osmolality and hyponatremia (principal); I25.10 Atherosclerotic heart disease of native coronary artery without angina pectoris; D72.829 Elevated white blood cell count, unspecified
CPT/HCPCS: 80048; 83735; 85025

== ENCOUNTER 2020-12-12 02:41 | Outpatient (CLI) | payer MEDICAID, SELFPAY ==
[2020-12-13 15:33] LABS: COVID-19 RT-PCR Result NEGATIVE (Negative)
== END 2020-12-12 03:01 ==
PROVIDERS: PCP Family Medicine; Visit Provider Surgery
DX: Z11.52 Encounter for screening for COVID-19 (principal); Z01.818 Encounter for other preprocedural examination
CPT/HCPCS: U0003

== ENCOUNTER 2020-12-16 07:07 | Day surgery (SDC) | payer MEDICAID, SELFPAY ==
--- NOTE | 2020-12-16 06:43 | W.COLOREPORT ---
Date of service: 12/16/20 Time of Service: 08:15 Colonoscopy Report Date of procedure: 12/16/20 Pre-op diagnosis general: Hx of polyps Post-op diagnosis procedure note: same (and polyp) Procedure: Colonoscopy with polypectomy Surgeon: Renetta Murillo Anesthesia proc note operative: other (General/ASA /) Estimated blood loss (mL): 3 Pathology: other (Rectal polyp) Complications: None Disposition: same day Indications: The patient is here for Colonoscopy pre-op. His last screening was in 2017, which was remarkable for mixed villlous adenoma, with tubulovillious sand serrated adenoma. He has no family history of colon cancer. He has not had any bowel habit changes. -Discussed colonoscopy bowel prep as well as the procedure. Discussed possible complications of the procedure to include bleeding, pain, perforation, missed small lesion/polyp, sore throat, aspiration and adverse reaction to the medications. Questions were answered to patient?s satisfaction. No guarantees were implied or given. Prep: Miralax/Dulcolax Procedure Start Time: 08:15 Procedure End Time: 08:48 Retraction Time: 25 minutes Findings: One small rectal polyp Procedure Description: After informed consent was obtained the patient was taken to the procedure room and placed in a left decubitous position. Monitors were applied and a time out was done. The patients name, date of , procedure, allergies to medications and metal in their body was reviewed. The patient was then sedated. Once sedated and comfortable a rectal exam was done. External exam was normal. Internal exam revealed a normal sphincter tone and no palpable masses. The prostate felt smooth and slightly enlarged. The scope was then introduced and retro-flexed. No internal hemorrhoids, polyps or masses were identified on retro-flexion. The scope was then advanced to the cecum without difficulty. The ileocecal valve and appendiceal orifice were identified. The prep was good. The scope was then slowly retracted over 25 minutes back into the rectum. Polyps were removed with a hot snare in the rectum. There was no diverticulosis noted. The scope was removed and the patient was woken up and taken back to Same day surgery in stable condition. The patient tolerated the procedure well and there were no immediate complications. Follow up: The patient should follow up in 3-5 years unless they develop changes in bowel habits or other new gastrointestinal complaints.
--- NOTE | 2020-12-16 06:44 | W.PM.DSUDISC ---
Discharge Plan Disposition Patient Disposition: HOME Condition: Good Discharge Details Reason For Visit: colonoscopy Attending Provider: Renetta Murillo Primary Care Provider: Satish Ruiz Home Meds and New Rx's Prescriptions: Continued amlodipine 10 mg tablet 10 mg PO DAILY RF: 0 lisinopril-hydrochlorothiazide 20-25 mg tablet 1 tab PO DAILY RF: 0 aspirin [Aspir-81] 81 MG tablet,delayed release (DR/EC) 1 tab PO DAILY RF: 0 nitroglycerin [Nitrostat] 0.4 MG tablet, sublingual 1 tab PO PRN PRNRF: 0 metoprolol tartrate 25 MG tablet 50 tab PO DAILY RF: 0 multivitamin [One Daily] 1 EACH tablet 1 ea PO DAILY RF: 0 atorvastatin [Lipitor] 40 mg tablet 80 mg PO QPM RF: 0 Discontinued polyethylene glycol 3350 17 gram/dose powder 238 g PO ONCE Qty: 238 RF: 0 bisacodyl [Dulcolax (bisacodyl)] 5 mg tablet,delayed release (DR/EC) 5 mg PO ONCE Qty: 4 RF: 0 Discharge Instructions Additional Instructions: Findings: One pre-cancerous polyp Follow up: 3-5 years Please call if you develop: fevers >101.5 Nausea or Vomiting Abdominal pain that is not transient DAY SURGERY UNIT POST ENDOSCOPY INSTRUCTIONS 1. Because there will be medication in your system for the next 24 hours, you may feel a little sleepy. Your coordination will be affected. Therefore: a. Do not drive or operate dangerous equipment for 24 hours. b. Do not drink alcohol beverages for 24 hours (not even beer). c. Plan to go home and rest for the day. 2. Generally there are no restrictions on your activity after a day or so has gone by, but you may feel a bit fatigued for a few days. 3 After you arrive home you may have a light meal and return to a normal diet as you can tolerate it without feeling sick to your stomach. 4. After surgery, you may feel pain or discomfort. This should be only transient, but if it persists please contact your doctor. 5. If there are any questions regarding the findings of your procedure, please feel free to contact your doctor. 6. If you are unable to contact your doctor with a problem, contact the hospital at [phone]. 7. Continue all your regular medications unless directed otherwise. I understand the above instructions and have no questions. Signature of Patient or Responsible Adult Escort Date/Time Name of Responsible Adult Escort Signature of Nurse Date/Time Activity:: Activity as Tolerated Diet:: As Tolerated Discharge Orders Discharge Orders: Discharge Order (Routine); Ordered 12/16/20 Ordered By: Renetta Murillo
[2020-12-16 07:14] VITALS: BP 120/68; PULSE 68; RESP 16; TEMP 36.5; O2SAT 98
[2020-12-16] MEDS: Lactated Ringers 1,000 ML 80 ML IV (07:41)
--- NOTE | 2020-12-16 08:46 | BOWEL_PTH ---
PATIENT: Arnulfo August LOC: [facility] U#:[id number] AGE/SX: 60/M ROOM: RE12/16/[address]: Renetta Murillo MD : 1960 BED: DIS: 12/16/2020 SPEC #: [id number] RECD: 12/16/20 12:19 STATUS: ISADORARaj REQ #: [id number] LEEANN: 12/16/20 08:[address]: Renetta Murillo DEPT: Surgical Specimen RECD BY: Yeimi Enrique ENTERED: 12/16/20 12:19 SP TYPE: Bowel OTHR DR: Satish Ruiz Tissues: 1 - BIOPSY BOWEL Procedures: GROSS AND MICRO LEVEL 4 Comments: [id number]
[2020-12-16 09:29] VITALS: BP 110/66; PULSE 80; RESP 18; TEMP 36.5; O2SAT 99
== END 2020-12-16 10:01 | disposition home or self-care (01) ==
LOC: SUR 07:08
PROVIDERS: PCP Family Medicine; Visit Provider Surgery
PROC: 0DJD8ZZ Inspection of Lower Intestinal Tract, Via Natural or Artificial Opening Endoscopic (ICD-10-PCS; CPT 45378; principal; 2020-12-16 08:30)
DX: Z12.11 Encounter for screening for malignant neoplasm of colon (principal); Z86.010 Personal history of colon polyps; D12.8 Benign neoplasm of rectum
CPT/HCPCS: 45385; 88305; J2001

== ENCOUNTER 2021-10-03 16:36 | Outpatient (REF) | payer MEDICAID, SELFPAY ==
[2021-10-03 19:21] LABS: Anion Gap 10.9 mmol/L (3-11); BUN 12 mg/dL (7-18); CO2 28.1 mmol/L (21.0-32.0); CREATININE 0.9 mg/dL (0.70-1.30); Calcium 8.5 mg/dL (8.5-10.1); Calculated LDL 63 mg/dL (<100); Chloride 97 mmol/L (98-107); Cholesterol 121 mg/dL (<200); Glucose 115 mg/dL (74-106); HDL Cholesterol 42 mg/dL (40-60); Potassium 3.9 mmol/L (3.5-5.1); Sodium 136 mmol/L (136-145); Triglyceride 84 mg/dL (<150)
== END 2021-10-03 16:37 | disposition home or self-care (01) ==
LOC: NCHCN 16:36
PROVIDERS: PCP Family Medicine; Visit Provider Family Medicine
DX: E87.1 Hypo-osmolality and hyponatremia (principal); I10 Essential (primary) hypertension; Z00.00 Encounter for general adult medical examination without abnormal findings
CPT/HCPCS: 80048; 80061

== ENCOUNTER 2022-03-07 02:04 | Inpatient (IN) | payer MEDICAID, SELFPAY ==
[2022-03-07] VITALS (117 sets, daily range): BP systolic 89–133; BP diastolic 47–93; PULSE 44–126; RESP 5–29; TEMP 36.5–36.8; O2SAT 82–100
--- NOTE | 2022-03-07 02:00 | RT.EKG_ITS ---
APPROVED REPORT Exam: Resting ECG Reason for Exam: chest pain Patient Location: E HR:106 bpm ECG Measurements Heart Rate 106 AXIS AL 58 P 3 QRSd 111 QRS 46 QT 375 T 3 QTc 499 Conclusion Sinus tachycardia...rate> 99 Paired ventricular premature complexes...sequence of 2 V complexes Left atrial enlargement...P, P'>60mS, <-0.15mV V1 Inferior infarct, age indeterminate...Q>35mS, T neg, II III aVF Physician: Sinus tachycardia with appears to be ventricular bigeminy. Inverted T waves in lead III w ith Q waves as well. No significant ST elevation or depression. No STEMI. Review of prior EKG from 05/30/2020 reveals similar findings of Q waves inverted T waves.
[2022-03-07 02:22] LABS: Source Nasal/Nares
[2022-03-07 02:29] LABS: Abs Immature Grans 0.17 10^3/uL (0.0-0.06); Absolute Basophil Count 0.04 10^3/uL (0.0-0.2); Absolute Monocyte Count 1.98 10^3/uL (0.1-0.8); Absolute Neutrophil Count 18.31 10^3/uL (1.2-6.7); Basophils % 0.2; HCT 43.9 % (40.0-50.0); HGB 15.6 g/dL (13.5-17.5); Immature Grans % 0.8; Lymphocytes % 7.9; MCH 31.5 pg (27.0-33.0); MCHC 35.5 % (32.0-36.0); MCV 88.5 fL (80-95); MPV 8.6 fL (8.0-11.0); Monocytes % 8.9; Neutrophils % 82.2; Nucleated RBC 0 %; Platelet Count 539 10^3/uL (130-400); RBC 4.96 10^6/uL (4.36-5.78); RDW-SD 39.1 fL; WBC 22.28 10^3/uL (4.4-10.8)
--- NOTE | 2022-03-07 02:30 | DI.RAD_ITS ---
Exam(s) XR PORTABLE CHEST AP EXAM: XR PORTABLE CHEST AP CLINICAL HISTORY: chest pain, vtach. TECHNIQUE: 2D digital imaging was performed. COMPARISON: CR XR PORTABLE CHEST AP from 05/30/2020 FINDINGS: LUNGS: Clear. No pleural abnormality seen. HEART: Normal. MEDIASTINUM: Normal. OTHER FINDINGS: None. IMPRESSION: No acute pulmonary findings. DATA REPOSITORY: RADIATION DOSE DELIVERED: Total DLP
[2022-03-07 02:38] LABS: Absolute Lymphocyte Count 1.76 10^3/uL (1.2-3.4)
[2022-03-07 02:48] LABS: ALT 56 U/L (16-63); AST 31 U/L (15-37); Albumin 4.1 g/dL (3.4-5.0); Alkaline Phosphatase 158 U/L (46-116); BUN 7 mg/dL (7-18); CO2 27.6 mmol/L (21.0-32.0); Chloride 88 mmol/L (98-107); Glucose 194 mg/dL (74-106); Lipase 180 U/L (73-393); NT-proBNP 361 pg/mL (<300); TSH (W/Ref FT4) 0.57 uIU/mL (0.36-3.74); Total Protein 7.7 g/dL (6.4-8.2); Troponin I < 50 ng/L (<or=60)
[2022-03-07 02:52] LABS: INR 1.1 (0.9-1.1); PTT Activated 25.4 sec (21.0-27.5); Prothrombin Time 10.7 sec (9.3-11.0)
[2022-03-07 02:57] LABS: Diff Comment Diff Reviewed
[2022-03-07 02:58] LABS: RBC Morphology Normal
[2022-03-07 03:01] LABS: Anion Gap 8.4 mmol/L (3-11); Calcium 8.8 mg/dL (8.5-10.1)
[2022-03-07 03:02] LABS: Magnesium 1.8 mg/dL (1.8-2.4)
[2022-03-07 03:08] LABS: Sodium 124 mmol/L (136-145)
--- NOTE | 2022-03-07 03:14 | ED.GENADUL_ITS ---
Discharge Plan Disposition Patient Disposition: [facility] INPATIENT Condition: Improving Discharge Details Clinical Impression: Arrhythmia, Hyponatremia, Hypokalemia, Lab test positive for detection of COVID-19 virus Primary Care Provider: Satish Ruiz ED Provider: Diogenes Arroyo Home Meds and New Rx's Prescriptions: No Action amlodipine 10 mg tablet 10 mg PO DAILY 0RF lisinopril-hydrochlorothiazide 20-25 mg tablet 1 tab PO DAILY 0RF aspirin [Aspir-81] 81 MG tablet,delayed release (DR/EC) 1 tab PO DAILY 0RF nitroglycerin [Nitrostat] 0.4 MG tablet, sublingual 1 tab PO PRN [id number] Label Comments: pt states he has not had to use this 01/15/17 metoprolol tartrate 25 MG tablet 50 tab PO DAILY 0RF multivitamin [One Daily] 1 EACH tablet 1 ea PO DAILY 0RF atorvastatin [Lipitor] 40 mg tablet 80 mg PO QPM 0RF Medical Decision Making This is a 61-year-old male with a past medical history of myocardial infarction with cardiac catheterization in 2012, intermittent PVCs, hypertension, high cholesterol, who presents today for evaluation of chest pain. Patient states that at 10:30 PM he developed a mild chest achiness and heaviness. At the same time he developed notable palpitations. He states that this is happened before in the past but never to this degree. He was lying in bed when the symptoms occurred. That lasted for about 30 minutes and then went away on its own, for both the palpitations and the chest pain, however the palpitations later recurred and continued throughout the night at which point he contacted EMS. Per EMS there was noted a 30 second episode with the patient was in stable V. tach with a pulse. It resolved on its own. Patient had no chest pain at that time. The patient was brought in for further assessment. Currently the patient states he feels nervous but otherwise feels slightly weak. He denies any headache change in vision. He denies any chest pain or syncope currently. He denies any tearing or ripping sensation. No alcohol consumption, no medication change, no other complaints. Physical exam demonstrates a well-appearing male. Mucous membranes are dry. No calf tenderness or pitting edema of the lower extremities. Patient does demonstrate slight tach this excavated him which is chronic. Currently the patient appears to be in bigeminy on the monitor. Blood pressure is stable in the low 100s systolic. Heart rate stable. He has no chest pain at this time. He is not in V. tach at this time. Out of an abundance of caution we will place the patient on the defibrillation pads. Will evaluate for concerning cardiac etiologies, will monitor closely and reassess. Bedside limited portable echo was performed and demonstrates a small pericardial fat pad, no evidence of large pericardial effusion. Ejection fraction appears to be around 45 to 50%. Left ventricle appears slightly large. 3:45 AM Patient's laboratory starting to return. White count is elevated at 22, he does have a left shift. Patient denies any fever or chills or cough. He does state that he was a little sick for 1 day 2 weeks ago, but has been fine ever since. He has NOT been vaccinated for Covid. We have placed a Covid test. We will get an ESR, CRP and procalcitonin. I will add a urinalysis we are still waiting for chest x-ray results. Electrolytes have returned and sodium is 124, potassium is 3, chloride 88, magnesium is normal. Does not fit the criterion for an adrenal insufficiency scenario. Uncertain why he has the associated changes in his electrolytes. We will gently rehydrate, give 20 of IV potassium and 40 of oral potassium. We will continue to monitor . Hypokalemia may have been a component and because of his cardiac irritability. 4:30 AM Patient's Covid test has returned positive. Patient continues to deny any fever chills or cough. ESR has returned mildly elevated, troponin is normal. proBNP is normal. Thyroid function normal. Procalcitonin less than 0.1, and ESR is normal. Patient is still not urinated yet. We are still pending chest x-ray. Blood cultures have been ordered. Patient did have an episode of 4 beat nonsustained ventricular tachycardia. He denies any symptoms during this episode. did contact the hospitalist Dr. Mejias, he agrees with the assessment and plan. Patient will be admitted to the ICU. I have extensively reviewed the treatment plan with the patient. I have addressed all patient concerns at this time. I have also discussed the plan with the admitting physi bonita and they agree with the current assessment and plan and have agreed to assume responsibility for the patient. All parties demonstrate verbal understanding and agreement with our assessment and plan at this time. The documentation in this chart was dictated using [employer] dictation software. Please excuse any dictation errors. 5:34 AM Chest x-ray is read as negative, no large infiltrates or effusions. We will hold off on antibiotic currently. Did inform Dr. Mejias of these results. EKG 2: 08 Sinus tachycardia with appears to be ventricular bigeminy. Inverted T waves in lead III with Q waves as well. No significant ST elevation or depression. No STEMI. Review of prior EKG from 05/30/2020 reveals similar findings of Q waves inverted T waves. FINDINGS: Lungs: No consolidation. Left lower lung is partially obscured by the ground plate. Pleural spaces: Unremarkable. No pleural effusion. No pneumothorax. Heart/Mediastinum: Unremarkable. No cardiomegaly. Bones/joints: Unremarkable. IMPRESSION: No large infiltrates or effusions. Thank you for allowing us to participate in the care of your patient. Dictated and Authenticated by: Joseph Nuñez MD 03/07/2022 4:37 AM Eastern Time ([place] & [place]) HPI General Date/Time Provider Initiated Documentation: 03/07/22 02:11 . HPI Narrative: This is a 61-year-old male with a past medical history of myocardial infarction with cardiac catheterization in 2013, intermittent PVCs, hypertension, high cholesterol, who presents today for evaluation of chest pain. Patient states that at 10:30 PM he developed a mild chest achiness and heaviness. At the same time he developed notable palpitations. He states that this is happened before in the past but never to this degree. He was lying in bed when the symptoms occurred. That lasted for about 30 minutes and then went away on its own, for both the palpitations and the chest pain, however the palpitations later recurred and continued throughout the night at which point he contacted EMS. Per EMS there was noted a 30 second episode with the patient was in stable V. tach with a pulse. It resolved on its own. Patient had no chest pain at that time. The patient was brought in for further assessment. Currently the patient states he feels nervous but otherwise feels slightly weak. He denies any headache change in vision. He denies any chest pain or syncope currently. He denies any tearing or ripping sensation. No alcohol consumption, no medication change, no other complaints. Related Data Home Medications Medication Instructions Recorded Confirmed aspirin 81 mg tablet,delayed 1 tab PO DAILY 05/13/16 03/07/22 release (Aspir-) metoprolol tartrate 25 mg tablet 50 tab PO DAILY 05/13/16 03/07/22 nitroglycerin 0.4 mg sublingual 1 tab PO PRN PRN 05/13/16 03/07/22 tablet (Nitrostat) multivitamin (One Daily) 1 ea PO DAILY 01/15/17 03/07/22 amlodipine 10 mg tablet 10 mg PO DAILY 09/23/20 03/07/22 lisinopril 20 1 tab PO DAILY 09/23/20 03/07/22 mg-hydrochlorothiazide 25 mg tablet atorvastatin 40 mg tablet (Lipitor) 80 mg PO QPM tab 12/05/20 03/07/22 Allergies Allergy/AdvReac Type Severity Reaction Status Date / Time No Known Allergies Allergy Unverified 03/07/22 02:15 General Stated Complaint: Chest Pain YULIANA: 2 Review of Systems All systems reviewed & are unremarkable except as noted in HPI and below PFSH All Active Problems (Updated 03/07/22 @ 04:41 by Diogenes Arroyo DO) Lab test positive for detection of COVID-19 virus (Acute) Serrated adenoma of colon (Acute) Chest pain (Acute) Arrhythmia (Acute) Hypokalemia (Acute) Hyponatremia (Acute) Leukocytosis, unspecified (Acute) Medical History CAD (coronary artery disease) 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 Ruiz HTN (hypertension) Hypercholesterolemia Rectal polyp Surgical History Colonoscopy - IV Sedation (01/15/17) Coronary Stent Tonsillectomy Social History Smoking/Tobacco Use Status: Former Tobacco Use Quit Date: 11/29/12 Smoking risk assessment performed?: Yes Alcohol Intake: former Drug use: Never Substance use type: does not use and former substance user Current gender identity: male Do you feel safe at home: Yes Do you feel safe in your relationship?: Yes Exam Narrative Exam Narrative: 1.Const: Well-nourished, Well-developed, appearing stated age 2.Eyes: PERRL, no conjunctival injection, and symmetrical lids. 3.ENT: Atraumatic external nose and ears. Notably dry MM. Neck: Symmetric, trachea midline, No thyromegaly. 4.CVS: +S1/S2, No murmurs or gallops. Peripheral pulses 2+ and equal in all extremities. Brisk capillary refill in all extremities. 5.RESP: Unlabored respiratory effort. Clear to auscultation bilaterally. No wheezes rales or rhonchi 6.GI: Soft, Nontender/Nondistended, No hepatosplenomegaly. No guarding or rebound. 7.MSK: Normocephalic/Atraumatic, Extremities w/o deformity or ttp No cyanosis or clubbing, Normal movement of all extremities, no pitting edema. No calf tenderness. 8.Skin: Warm, Dry. No rashes or lesions. 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 Sensation grossly intact, no focal neurologic deficits. 10.Psych: (AAO) x3. Appropriate mood and affect Course Vital Signs Vital signs: Vital Signs Temperature 36.6 C 03/07/22 02:04 Pulse 119 H 03/07/22 02:04 Respiratory Rate 20 03/07/22 02:04 Blood Pressure 120/58 L 03/07/22 02:04 Pulse Oximetry 100 03/07/22 02:04 Temperature 36.6 C 03/07/22 02:04 Temperature Source Skin 03/07/22 02:04 Pulse 105 H 03/07/22 02:16 Pulse 108 H 03/07/22 02:20 Respiratory Rate 17 03/07/22 02:20 Respiratory Effort 03/07/22 02:12 Respiratory Depth Normal 03/07/22 02:12 Respiratory Pattern Normal 03/07/22 02:12 Blood Pressure 107/47 L 03/07/22 02:16 Blood Pressure Mean 62 03/07/22 02:16 Blood Pressure Position Supine 03/07/22 02:04 Pulse Oximetry 100 03/07/22 02:20 Oxygen Delivery Method Room Air 03/07/22 02:04 Oxygen Flow Rate 0 03/07/22 02:04 Pain Level 0 03/07/22 02:12 Lab/Test Results Lab/Test Results: 03/07/22 03:01 Blood Blood Culture - Pending 03/07/22 03:01 Blood Blood Culture - Pending Laboratory Tests Range/Units 03/07/22 03/07/22 03/07/22 02:04 02:09 02:09 WBC (4.4-10.8) 10^3/uL 22.28 H RBC (4.36-5.78) 10^6/uL 4.96 Hgb (13.5-17.5) g/dL 15.6 Hct (40.0-50.0) % 43.9 MCV (80-95) fL 88.5 MCH (27.0-33.0) pg 31.5 MCHC (32.0-36.0) % 35.5 RDW (11.8-14.1) % 12.0 Plt Count (130-400) 10^3/uL 539 H MPV (8.0-11.0) fL 8.6 Immature Gran % 0.8 Neutrophils % 82.2 Lymphocytes % 7.9 Monocytes % 8.9 Eosinophils % 0.0 Basophils % 0.2 Nucleated RBC % % 0 Absolute Neutrophils (1.2-6.7) 10^3/uL 18.31 H Absolute Lymphocytes (1.2-3.4) 10^3/uL 1.76 Absolute Monocytes (0.1-0.8) 10^3/uL 1.98 H Absolute Eosinophils (0.0-0.7) 10^3/uL 0.00 Absolute Basophils (0.0-0.2) 10^3/uL 0.04 RBC Morphology Normal PT (9.3-11.0) sec INR (0.9-1.1) APTT (21.0-27.5) sec Sodium (136-145) mmol/L 124 L Potassium (3.5-5.1) mmol/L 3.0 L Chloride (98-107) mmol/L 88 L Carbon Dioxide (21.0-32.0) mmol/L 27.6 Anion Gap (3-11) mmol/L 8.4 BUN (7-18) mg/dL 7 Creatinine (0.70-1.30) mg/dL 1.0 Estimated GFR/1.73 m2 (mL/min/1.73m2) >= 60.00 Glucose (74-106) mg/dL 194 H Calcium (8.5-10.1) mg/dL 8.8 Magnesium (1.8-2.4) mg/dL 1.8 Total Bilirubin (0.2-1.0) mg/dL 1.0 AST (15-37) U/L 31 ALT (16-63) U/L 56 Alkaline Phosphatase (46-116) U/L 158 H Troponin I (<or=60) ng/L < 50 NT-Pro-B Natriuret Pep (<300) pg/mL 361 H Total Protein (6.4-8.2) g/dL 7.7 Albumin (3.4-5.0) g/dL 4.1 Lipase (73-393) U/L 180 TSH (0.36-3.74) uIU/mL 0.57 COVID-19 Source Range/Units 03/07/22 03/07/22 02:09 02:19 WBC (4.4-10.8) 10^3/uL RBC (4.36-5.78) 10^6/uL Hgb (13.5-17.5) g/dL Hct (40.0-50.0) % MCV (80-95) fL MCH (27.0-33.0) pg MCHC (32.0-36.0) % RDW (11.8-14.1) % Plt Count (130-400) 10^3/uL MPV (8.0-11.0) fL Immature Gran % Neutrophils % Lymphocytes % Monocytes % Eosinophils % Basophils % Nucleated RBC % % Absolute Neutrophils (1.2-6.7) 10^3/uL Absolute Lymphocytes (1.2-3.4) 10^3/uL Absolute Monocytes (0.1-0.8) 10^3/uL Absolute Eosinophils (0.0-0.7) 10^3/uL Absolute Basophils (0.0-0.2) 10^3/uL RBC Morphology PT (9.3-11.0) sec 10.7 INR (0.9-1.1) 1.1 APTT (21.0-27.5) sec 25.4 Sodium (136-145) mmol/L Potassium (3.5-5.1) mmol/L Chloride (98-107) mmol/L Carbon Dioxide (21.0-32.0) mmol/L Anion Gap (3-11) mmol/L BUN (7-18) mg/dL Creatinine (0.70-1.30) mg/dL Estimated GFR/1.73 m2 (mL/min/1.73m2) Glucose (74-106) mg/dL Calcium (8.5-10.1) mg/dL Magnesium (1.8-2.4) mg/dL Total Bilirubin (0.2-1.0) mg/dL AST (15-37) U/L ALT (16-63) U/L Alkaline Phosphatase (46-116) U/L Troponin I (<or=60) ng/L NT-Pro-B Natriuret Pep (<300) pg/mL Total Protein (6.4-8.2) g/dL Albumin (3.4-5.0) g/dL Lipase (73-393) U/L TSH (0.36-3.74) uIU/mL COVID-19 Source Nasal/Nares
[2022-03-07] MEDS: Normal Saline 1,000 ML 150 ML IV (03:17)
[2022-03-07 03:19] LABS: ESR 13 mm/hr (0-20)
[2022-03-07] MEDS: Potassium Chloride 20 MEQ TABCR 40 MEQ PO (03:21)
[2022-03-07] MEDS: POTASSIUM CHLORIDE 20 MEQ/100 ML BAG 50 MEQ IVPB (03:24)
[2022-03-07 03:29] LABS: COVID-19 PCR POSITIVE (Negative)
[2022-03-07 03:29] LABS: C-Reactive Protein 0.16 mg/dL (0.0-0.3)
[2022-03-07 04:11] LABS: Procalcitonin < 0.1 ng/mL
--- NOTE | 2022-03-07 04:37 | DI.VRAD_ITS ---
PROCEDURE INFORMATION: Exam: XR Chest Exam date and time: 03/07/2022 2:37 AM Age: 61 years old Clinical indication: Other: Vtach; Other: Chest pain, unspecified; Additional info: Chest pain, vtach TECHNIQUE: Imaging protocol: XR of the chest. Views: 1 view. COMPARISON: CR XR PORTABLE CHEST AP 05/30/2020 3:16 PM FINDINGS: Lungs: No consolidation. Left lower lung is partially obscured by the ground plate. Pleural spaces: Unremarkable. No pleural effusion. No pneumothorax. Heart/Mediastinum: Unremarkable. No cardiomegaly. Bones/joints: Unremarkable. IMPRESSION: No large infiltrates or effusions. Dictated and Authenticated by: Joseph Nuñez MD. Ordering:FLAVIO Shetty MD
[2022-03-07 05:20] LABS: Troponin I < 50 ng/L (<or=60)
--- NOTE | 2022-03-07 07:56 | W.PM.HP.N ---
Assessment and Plan Assessment and plan (1) Lab test positive for detection of COVID-19 virus: Status: Acute Assessment and plan: He is not immunized for COVID-19. The chest x-ray does not show any typical pneumonia however because he is at high risk for developing complications in this chest pain and arrhythmia that he is having could be related to Covid. We will start him on remdesivir. A D-dimer and CRP will be drawn. (2) Chest pain: Status: Acute Assessment and plan: Etiology of chest pain is not clear. A CT of the chest will be done to look for pulmonary embolism. (3) Hypokalemia: Status: Acute Assessment and plan: He did receive intravenous and p.o. potassium. This will be rechecked in 2 hours. (4) Hyponatremia: Status: Acute Assessment and plan: Sodium is currently 124 and this will be rechecked in 2 hours. Etiology of this is probably related to his hydrochlorothiazide. (5) Leukocytosis, unspecified: Status: Acute Assessment and plan: He has had a history of leukocytosis in the past. Etiology of this is unclear. (6) CAD (coronary artery disease): Assessment and plan: His troponins negative x2. His chest pain is atypical for coronary disease. (7) V tach: Status: Chronic Assessment and plan: He had by history and 32nd episode of V. tach but we do not have the rhythm strip on this. In the emergency department he had repeat of 4 ventricular beats in a row. [facility] cardiology is consulted for transfer to them for further care. History of Present Illness History of Present Illness Chief Complaint: chest pain, palpitations Narrative: This 61-year-old patient has a history of coronary artery disease. He had a cardiac catheterization in the past which showed a 40% lesion of one artery but he could not tell me which one. He was treated at [facility] in the past. He developed chest pain last night when he went to bed which was a sharp pain in the central area of his chest without radiation. He also felt some palpitations. He called EMS and when the emergency team arrived the fire department placed a monitor on which apparently showed about 30 seconds of perfusing V. tach. It stopped on its own. They did not provide a monitor strip of this so far but we have asked to see if that can be produced. The EMS team did not notice any V. tach but he did have some episodes of bigeminy. The chest pain lasted for about an hour and resolved on its own. He did not receive a nitroglycerin for this. He presented to the emergency department and was found to be hyponatremic and hypokalemic and has an elevated white count. He lives at home with his mother and brother. They have all been sick with a respiratory infection. He says he does not know if they have been immunized for Covid but he has not been. He said he wanted to just see how he would do if he caught the virus. He developed a cough at the end of January of this year and that has persisted although he does feel a bit improved. He had an x-ray in the emergency department which did not show any pneumonia. He was given intravenous and oral potassium in the emergency department. Review of Systems Constitutional Constitutional: Denies chills and Denies fever(s) Cardiovascular Cardiovascular: Reports chest pain at rest, Reports rapid heart rate, Reports palpitations and Denies dyspnea Respiratory Respiratory: Reports cough and Denies dyspnea Gastrointestinal Gastrointestinal: Denies abdominal pain, Denies bloating, Denies constipation, Denies nausea and Denies vomiting Genitourinary Genitourinary: Denies difficulty urinating and Denies dysuria Neurologic Neurologic: Denies behavioral changes, Denies confusion and Denies sensory deficit Psychiatric Psychiatric: Denies behavioral changes and Denies confusion Endocrine Endocrine: Reports palpitations PFSH All Active Problems (Updated 03/07/22 @ 08:07 by Satish Lopez MD) V tach (Chronic) Lab test positive for detection of COVID-19 virus (Acute) Serrated adenoma of colon (Acute) Chest pain (Acute) Arrhythmia (Acute) Hypokalemia (Acute) Hyponatremia (Acute) Leukocytosis, unspecified (Acute) Medical History CAD (coronary artery disease) 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 Ruiz HTN (hypertension) Hypercholesterolemia Rectal polyp Surgical History Colonoscopy - IV Sedation (01/15/17) Coronary Stent Tonsillectomy Social History (Reviewed 03/07/22 @ 03:21 by JARET Corea Smoking/Tobacco Use Status: Former Tobacco Use Quit Date: 11/29/12 Smoking risk assessment performed?: Yes Alcohol Intake: former Drug use: Never Substance use type: does not use and former substance user Current gender identity: male Do you feel safe at home: Yes Do you feel safe in your relationship?: Yes Meds Allergies and Home Medications Allergies Allergy/AdvReac Type Severity Reaction Status Date / Time No Known Allergies Allergy Unverified 03/07/22 02:15 Home Medications Medication Instructions Recorded Confirmed Type aspirin 81 mg tablet,delayed 1 tab PO DAILY 05/13/16 03/07/22 History release (Aspir-) metoprolol tartrate 25 mg tablet 50 mg PO DAILY 05/13/16 03/07/22 History nitroglycerin 0.4 mg sublingual 1 tab PO PRN PRN 05/13/16 03/07/22 History tablet (Nitrostat) multivitamin (One Daily) 1 ea PO DAILY 01/15/17 03/07/22 History amlodipine 10 mg tablet 10 mg PO DAILY 09/23/20 03/07/22 History lisinopril 20 1 tab PO DAILY 09/23/20 03/07/22 History mg-hydrochlorothiazide 25 mg tablet atorvastatin 40 mg tablet (Lipitor) 80 mg PO QPM tab 12/05/20 03/07/22 History Exam Const General: cooperative, no acute distress, well developed, does not appear intoxicated and not lethargic Nutritional Appearance: overweight Neck Neck: normal visual inspection, no lymphadenopathy and no JVD Resp Auscultation: clear to auscultation bilaterally, no rales and no wheezes Cardio Rate: regular rate Rhythm: regular rhythm Heart Sounds: S1 normal, S2 normal, no gallops and no murmurs GI Palpation: soft, no hepatosplenomegaly, not firm, no guarding, no masses and nontender Neuro General: patient alert, patient awake, patient oriented x3 and CN's II-XI intact bilaterally Speech: speech normal Extrem General: normal to inspection, no calf tenderness bilaterally, no cyanosis and no edema Results Labs Result diagrams: 03/07/22 02:09 03/07/22 02:09 Labs: Laboratory Results - last 24 hr 03/07/22 03/07/22 03/07/22 02:04 02:04 02:04 WBC RBC Hgb Hct MCV MCH MCHC RDW Plt Count MPV Immature Gran % Neutrophils % Lymphocytes % Monocytes % Eosinophils % Basophils % Nucleated RBC % Absolute Neutrophils Absolute Lymphocytes Absolute Monocytes Absolute Eosinophils Absolute Basophils RBC Morphology ESR PT INR APTT Sodium Potassium Chloride Carbon Dioxide Anion Gap BUN Creatinine Estimated GFR/1.73 m2 Glucose Calcium Magnesium 1.8 Total Bilirubin AST ALT Alkaline Phosphatase Troponin I C-Reactive Protein 0.16 NT-Pro-B Natriuret Pep Total Protein Albumin Lipase Procalcitonin < 0.1 TSH COVID-19 Source SARS-CoV-2 (PCR) 03/07/22 03/07/22 03/07/22 02:04 02:09 02:09 WBC 22.28 H RBC 4.96 Hgb 15.6 Hct 43.9 MCV 88.5 MCH 31.5 MCHC 35.5 RDW 12.0 Plt Count 539 H MPV 8.6 Immature Gran % 0.8 Neutrophils % 82.2 Lymphocytes % 7.9 Monocytes % 8.9 Eosinophils % 0.0 Basophils % 0.2 Nucleated RBC % 0 Absolute Neutrophils 18.31 H Absolute Lymphocytes 1.76 Absolute Monocytes 1.98 H Absolute Eosinophils 0.00 Absolute Basophils 0.04 RBC Morphology Normal ESR 13 PT INR APTT Sodium 124 L Potassium 3.0 L Chloride 88 L Carbon Dioxide 27.6 Anion Gap 8.4 BUN 7 Creatinine 1.0 Estimated GFR/1.73 m2 >= 60.00 Glucose 194 H Calcium 8.8 Magnesium Total Bilirubin 1.0 AST 31 ALT 56 Alkaline Phosphatase 158 H Troponin I < 50 C-Reactive Protein NT-Pro-B Natriuret Pep 361 H Total Protein 7.7 Albumin 4.1 Lipase 180 Procalcitonin TSH 0.57 COVID-19 Source SARS-CoV-2 (PCR) 03/07/22 03/07/22 03/07/22 02:09 02:19 05:00 WBC RBC Hgb Hct MCV MCH MCHC RDW Plt Count MPV Immature Gran % Neutrophils % Lymphocytes % Monocytes % Eosinophils % Basophils % Nucleated RBC % Absolute Neutrophils Absolute Lymphocytes Absolute Monocytes Absolute Eosinophils Absolute Basophils RBC Morphology ESR PT 10.7 INR 1.1 APTT 25.4 Sodium Potassium Chloride Carbon Dioxide Anion Gap BUN Creatinine Estimated GFR/1.73 m2 Glucose Calcium Magnesium Total Bilirubin AST ALT Alkaline Phosphatase Troponin I < 50 C-Reactive Protein NT-Pro-B Natriuret Pep Total Protein Albumin Lipase Procalcitonin TSH COVID-19 Source Nasal/Nares SARS-CoV-2 (PCR) POSITIVE A* Last Vital Signs Temp 36.8 C 03/07/22 06:09 Pulse 77 03/07/22 06:09 Resp 12 03/07/22 06:09 BP 113/78 03/07/22 06:09 Pulse Ox 97 03/07/22 06:09
--- NOTE | 2022-03-07 08:00 | RT.EKG_ITS ---
APPROVED REPORT Exam: Resting ECG Reason for Exam: chest pain, pain Patient Location: I HR:78 bpm ECG Measurements Heart Rate 78 AXIS UT 167 P 56 QRSd 109 QRS 22 QT 386 T 7 QTc 440 Conclusion Sinus rhythm...normal P axis, V-rate 50- 99 Ventricular premature complex...V complex w/ short R-R interval
[2022-03-07] MEDS: amLODIPine 10 MG TAB PO (08:15)
[2022-03-07] MEDS: Aspirin E.C. 81 MG TABEC PO (08:15)
[2022-03-07] MEDS: Metoprolol 25 MG TAB PO (08:15)
[2022-03-07] MEDS: nitroGLYcerin 0.4 MG TAB SL (09:06)
[2022-03-07] MEDS: Normal Saline Flush 10 ML SYR IVP (09:33)
--- NOTE | 2022-03-07 09:37 | DI.CT_ITS ---
Exam(s) CT CHEST PE CTA EXAM: CT CHEST PE CTA CLINICAL HISTORY: chest pain, COVID-19 positive. TECHNIQUE: Imaging Protocol: Axial CT angiography was performed with multi-slice acquisition and mu lti-planar and/or 3D reconstructions. CONTRAST MATERIAL: Intravenous: Omnipaque 350 Contrast volume:structured data in ml COMPARISON: No exams were available for comparison FINDINGS: CT angiography of the chest was performed with intravenous infusion of 90 cc of Omnipaque 350. The lungs show small areas of atelectasis in the bases. There are predominantly peripheral areas of focal ground-glass and consolidative opacity, suspicious for infectious process. Please correlate cl inically.. No pleural effusion. Tracheobronchial tree appears intact. No evidence of pulmonary embolic disease. Thoracic aorta is of normal diameter, no thoracic aortic an eurysm or dissection, major branch vessels appear intact. No mediastinal or hilar adenopathy. Images obtained through the upper abdomen show unremarkable appearance of the visualized portions of the liver, spleen, pancreas, adrenals, and kidneys. IMPRESSION: Pulmonary opacities suggesting multifocal peripheral pneumonia, please correlate regarding the possib ility of COVID. No evidence of pulmonary embolic disease. RADIATION DOSE DELIVERED: 539.38mGy.cm Total DLP 539.38mGy.cm Total DLP !Error CTDIvol DATA REPOSITORY: All CT scans at this facility are submitted to the National Radiology Data Registry (NRDR) Dose Index Registry (DIR) with the [employer] (ACR). RADIATION OPTIMIZATION: All CT scans at this facility use at least one of these dose optimization te chniques: automated exposure control; mA and/or kV adjustment per patient size (includes targeted exa ms where dose is matched to clinical indication); or iterative reconstruction.
[2022-03-07] MEDS: Omnipaque 350 MG/ML 100 ML BTL IJ (09:42)
[2022-03-07] MEDS: Ascorbic Acid 500 MG TAB 1000 MG PO ×2 (09:47→20:26)
[2022-03-07] MEDS: Famotidine 20 MG TAB PO ×2 (09:48→20:26)
[2022-03-07] MEDS: Cholecalciferol (Vitamin D3) 1,000 UNIT TAB 2000 UNITS PO (09:48)
[2022-03-07] MEDS: Zinc Sulfate 220 MG TAB PO (09:48)
[2022-03-07] MEDS: Aspirin 81 MG CHEW 243 MG CH (09:48)
[2022-03-07 10:09] LABS: D-Dimer 541 ng/mlFEU (<500)
--- NOTE | 2022-03-07 10:41 | DI.VRAD_ITS ---
PROCEDURE INFORMATION: Exam: CTA Chest With Contrast Exam date and time: 03/07/2022 9:21 AM Age: 61 years old Clinical indication: Angina; Additional info: Chest pain, covid+ TECHNIQUE: Imaging protocol: Computed tomographic angiography of the chest with contrast. 3D rendering (Not supervised by radiologist): MIP and/or 3D reconstructed images were created by the technologist. Radiation optimization: All CT scans at this facility use at least one of these dose optimization techniques: automated exposure control; mA and/or kV adjustment per patient size (includes targeted exams where dose is matched to clinical indication); or iterative reconstruction. Contrast material: [id number]; Contrast volume: 90 ml; Contrast route: INTRAVENOUS (IV); COMPARISON: XR PORTABLE CHEST AP 03/07/2022 2:37 AM FINDINGS: Pulmonary arteries: Normal. No pulmonary emboli. Aorta: Unremarkable. No aortic aneurysm. No aortic dissection. Lungs: Bilateral multifocal subpleural ground-glass opacities. No significant lung consolidation. Low lung volumes. Pleural spaces: Unremarkable. No pneumothorax. No pleural effusion. Heart: Unremarkable. No cardiomegaly. No pericardial effusion. Lymph nodes: Unremarkable. No enlarged lymph nodes. Liver: Diffuse fatty infiltration of the liver. Bones/joints: Pectus excavatum chest wall deformity. Soft tissues: Unremarkable. IMPRESSION: 1. No pulmonary emboli. 2. Bilateral multifocal subpleural ground-glass opacities.Imaging features can be seen with COVID-19 pneumonia, though are nonspecific and can occur with a variety of infectious and noninfectious processes. (Reference: Sam) 3. Diffuse fatty infiltration of the liver. REFERENCES: Sam Arcos, et al., Radiological Society of [place] Expert Consensus Statement on Reporting Chest CT Findings Related to COVID-19. Endorsed by the Society of Thoracic Radiology, the [place] [employer], and RSNA. Published February 21, 2020. Dictated and Authenticated by: Heladio Curry MD. Ordering:JONO Bass MD
[2022-03-07] MEDS: REMDESIVIR 200 MG in Normal Saline 250 ML 250 MG IVPB (10:48)
[2022-03-07 10:59] LABS: BUN 9 mg/dL (7-18); CREATININE 0.8 mg/dL (0.70-1.30); Calcium 8.1 mg/dL (8.5-10.1); Chloride 92 mmol/L (98-107); Glucose 104 mg/dL (74-106); Potassium 3.8 mmol/L (3.5-5.1); Sodium 127 mmol/L (136-145)
--- NOTE | 2022-03-07 13:56 | PGE_ITS ---
Date of Service Date of service: 03/07/22 Time of Service: 13:57 Assessment and Plan Assessment and plan (1) Narrow complex tachycardia: Status: Acute Assessment and plan: Per [facility] cardiology, this was likely actually SVT. Will titrate metoprolol up to 50 mg PO Q6Hrs with holding parameters. Will obtain echo. May benefit from MPI stress test but I am unsure of the timing of this test and if it should be done at our facility. Will obtain cardiology consult on Wednesday. (2) Atypical chest pain: Status: Acute Assessment and plan: Will treat as ACS, per [facility] cardiology recommendations. (3) Pneumonia due to COVID-19 virus: Status: Acute Assessment and plan: Treat with remdesivir, proning, IS/acapella, bronchdilators, mucinex. Not requiring O2 - no role for steroids. No PE. Encourage proning. Monitor O2 requirement. On therapeutic anticoagulation. (4) Hyponatremia: Status: Acute Assessment and plan: Improving on NS. Continue until his baseline level of sodium of about 130. (5) Hypokalemia: Status: Acute Assessment and plan: Resolved. Recheck in am (6) Leukocytosis, unspecified: Status: Chronic Assessment and plan: Chronic. There is no evidence of acute bacterial process at this time, but we will monitor it. (7) DVT prophylaxis: Status: Acute Assessment and plan: Therapeutic heparin gtt. (8) Discharge planning issues: Status: Acute Assessment and plan: Full code Keep in ICU. Total Critical Care Time 90 minutes. Subjective Subjective Interval history since last seen: The patient reported a cough productive of sputum (he always has productive cough in am, does not know the color). He reported misternal chest pain - this resolved post administration of nitroglycerin. Denies dizziness, nausea, abdominal pain. His case was extensively evaluated with [facility] cardiology (Dr Pimentel) who saw the strips from the EMS and felt that the patient likely had SVT. Given chest pain's responsiveness to nitroglycerin, he recommended treating him as an ACS with aspirin, plavix and heparin gtt x 48 hrs. He recommended obtaining an MPI stress test if possible and a cardiology consult in our facility on Wednesday. He recommended maximally up-titrating beta blockers. He did not think that an emergent transfer to [facility] is indicated today. Exam Narrative Exam Narrative: General: Pleasant middle-aged male, appears comfortable in bed, on RA, no SOB/dyspnea/cyanosis, A&Ox3 HEENT: EOMI, MMM Heart: RRR, no m/r/g Lungs: expiratory wheezing B Abdomen: soft, nontender, nondistended Extremities: no edema BLEs Objective Last Vital Signs Temp 36.8 C 03/07/22 06:09 Pulse 66 03/07/22 10:34 Resp 17 03/07/22 10:34 BP 106/63 03/07/22 10:34 Pulse Ox 95 03/07/22 10:34 Laboratory Results - last 24 hr 03/07/22 03/07/22 03/07/22 02:04 02:04 02:04 WBC RBC Hgb Hct MCV MCH MCHC RDW Plt Count MPV Immature Gran % Neutrophils % Lymphocytes % Monocytes % Eosinophils % Basophils % Nucleated RBC % Absolute Neutrophils Absolute Lymphocytes Absolute Monocytes Absolute Eosinophils Absolute Basophils RBC Morphology ESR PT INR APTT D-Dimer Sodium Potassium Chloride Carbon Dioxide Anion Gap BUN Creatinine Estimated GFR/1.73 m2 Glucose Calcium Magnesium 1.8 Total Bilirubin AST ALT Alkaline Phosphatase Troponin I C-Reactive Protein 0.16 NT-Pro-B Natriuret Pep Total Protein Albumin Lipase Procalcitonin < 0.1 TSH COVID-19 Source SARS-CoV-2 (PCR) 03/07/22 03/07/22 03/07/22 02:04 02:09 02:09 WBC 22.28 H RBC 4.96 Hgb 15.6 Hct 43.9 MCV 88.5 MCH 31.5 MCHC 35.5 RDW 12.0 Plt Count 539 H MPV 8.6 Immature Gran % 0.8 Neutrophils % 82.2 Lymphocytes % 7.9 Monocytes % 8.9 Eosinophils % 0.0 Basophils % 0.2 Nucleated RBC % 0 Absolute Neutrophils 18.31 H Absolute Lymphocytes 1.76 Absolute Monocytes 1.98 H Absolute Eosinophils 0.00 Absolute Basophils 0.04 RBC Morphology Normal ESR 13 PT INR APTT D-Dimer Sodium 124 L Potassium 3.0 L Chloride 88 L Carbon Dioxide 27.6 Anion Gap 8.4 BUN 7 Creatinine 1.0 Estimated GFR/1.73 m2 >= 60.00 Glucose 194 H Calcium 8.8 Magnesium Total Bilirubin 1.0 AST 31 ALT 56 Alkaline Phosphatase 158 H Troponin I < 50 C-Reactive Protein NT-Pro-B Natriuret Pep 361 H Total Protein 7.7 Albumin 4.1 Lipase 180 Procalcitonin TSH 0.57 COVID-19 Source SARS-CoV-2 (PCR) 03/07/22 03/07/22 03/07/22 02:09 02:19 05:00 WBC RBC Hgb Hct MCV MCH MCHC RDW Plt Count MPV Immature Gran % Neutrophils % Lymphocytes % Monocytes % Eosinophils % Basophils % Nucleated RBC % Absolute Neutrophils Absolute Lymphocytes Absolute Monocytes Absolute Eosinophils Absolute Basophils RBC Morphology ESR PT 10.7 INR 1.1 APTT 25.4 D-Dimer Sodium Potassium Chloride Carbon Dioxide Anion Gap BUN Creatinine Estimated GFR/1.73 m2 Glucose Calcium Magnesium Total Bilirubin AST ALT Alkaline Phosphatase Troponin I < 50 C-Reactive Protein NT-Pro-B Natriuret Pep Total Protein Albumin Lipase Procalcitonin TSH COVID-19 Source Nasal/Nares SARS-CoV-2 (PCR) POSITIVE A* 03/07/22 03/07/22 08:50 08:50 WBC RBC Hgb Hct MCV MCH MCHC RDW Plt Count MPV Immature Gran % Neutrophils % Lymphocytes % Monocytes % Eosinophils % Basophils % Nucleated RBC % Absolute Neutrophils Absolute Lymphocytes Absolute Monocytes Absolute Eosinophils Absolute Basophils RBC Morphology ESR PT INR APTT D-Dimer 541 H Sodium 127 L Potassium 3.8 D Chloride 92 L Carbon Dioxide 28.0 Anion Gap 7.0 BUN 9 Creatinine 0.8 Estimated GFR/1.73 m2 >= 60.00 Glucose 104 D Calcium 8.1 L Magnesium Total Bilirubin AST ALT Alkaline Phosphatase Troponin I C-Reactive Protein NT-Pro-B Natriuret Pep Total Protein Albumin Lipase Procalcitonin TSH COVID-19 Source SARS-CoV-2 (PCR) Objective Narrative Objective Narrative: CTA chest: 1. No pulmonary emboli. 2. Bilateral multifocal subpleural ground-glass opacities.Imaging features can be seen with COVID-19 pneumonia, though are nonspecific and can occur with a variety of infectious and noninfectious processes. (Reference: Sam) 3. Diffuse fatty infiltration of the liver.
[2022-03-07] MEDS: Metoprolol 50 MG TAB PO ×2 (14:36→20:26)
[2022-03-07] MEDS: Clopidogrel 300 MG TAB PO (14:36)
[2022-03-07 14:53] LABS: PTT Activated 25.9 sec (21.0-27.5)
[2022-03-07 18:56] LABS: Bilirubin Negative (Negative); Blood Negative (Negative); Clarity Clear (Clear); Glucose Negative (Negative); Ketones Negative (Negative); Leukocyte Esterase Negative (Negative); Nitrite Negative (Negative)
--- NOTE | 2022-03-07 20:18 | PDOC.CMIN ---
- If Service Date Differs Date of service: 03/07/22 Time of Service: 20:18 Care Management Initial Assess REASON FOR HOSPITALIZATION:: Arrhythmia, Hyponatremia, Hypokalemia, COVID-19 PAST MEDICAL HISTORY/PAST SURGICAL HISTORY:: All Active Problems. V tach (Chronic). Lab test positive for detection of COVID-19 virus (Acute). Serrated adenoma of colon (Acute). Chest pain (Acute). Arrhythmia (Acute). Hypokalemia (Acute). Hyponatremia (Acute). Leukocytosis, unspecified (Acute). Medical History. CAD (coronary artery disease). History of inferior wall myocardial infarction. 12/2012-f/u with PCP Dr. Ruiz. HTN (hypertension). Hypercholesterolemia. Rectal polyp. Surgical History. Colonoscopy - IV Sedation (01/15/17). Coronary Stent. Tonsillectomy PREVIOUS FUNCTIONAL STATUS/SOCIAL/FAMILY SUPPORTS:: Arnulfo resides with his mother in [place], [place]. He is unemployed and does not drive. He is independent with ADLs. CURRENT FUNCTIONAL STATUS:: Arnulfo is currently on precautions for Covid, therefore CM was unable to meet with him. Per report, has been communicating with [facility] cardiology, who has accepted him for admission, pending bed availability. CM will continue to follow. ADVANCE DIRECTIVES:: None on file. Has patient been provided with info about the portal/API?: Yes Did the patient sign up for the portal?: No CODE STATUS:: Full Code INSURANCE COVERAGE / FINANCIAL ISSUES:: [employer] CURRENT HOME/COMMUNITY SERVICES/EQUIPMENT:: No known services or equipment. PRIMARY CARE PHYSICIAN:: Satish Ruiz POTENTIAL DISCHARGE NEEDS:: coordinated transfer to [facility] PATIENT/FAMILY EDUCATION NEEDS:: Review discharge instructions and limitations, discussion of self care needs including ask me three. ANTICIPATED BARRIERS TO DISCHARGE:: None identified. TRANSPORTATION:: EMS for transfer PLAN:: Arnulfo has been accepted for transfer at [facility]. He will transport via EMS. He will follow up with his PCP and discharge plan of care. CM will continue to follow.
[2022-03-07] MEDS: guaiFENesin 600 MG TABCR PO (20:27)
[2022-03-07] MEDS: Ipratropium/Albuterol 4 GM 120 PUFF INH IH (20:27)
[2022-03-07 21:50] LABS: PTT Activated 34.6 sec (21.0-27.5)
[2022-03-08] VITALS (43 sets, daily range): BP systolic 100–115; BP diastolic 51–66; PULSE 53–74; RESP 13–22; TEMP 36.3–36.8; O2SAT 92–98
[2022-03-08] MEDS: Metoprolol 50 MG TAB PO ×2 (02:11→07:13)
[2022-03-08] MEDS: Cholecalciferol (Vitamin D3) 1,000 UNIT TAB 2000 UNITS PO (06:29)
[2022-03-08] MEDS: Famotidine 20 MG TAB PO (06:30)
[2022-03-08] MEDS: Ascorbic Acid 500 MG TAB 1000 MG PO (06:30)
[2022-03-08] MEDS: guaiFENesin 600 MG TABCR PO (06:30)
[2022-03-08] MEDS: amLODIPine 10 MG TAB PO (06:30)
[2022-03-08] MEDS: Zinc Sulfate 220 MG TAB PO (06:30)
[2022-03-08] MEDS: Normal Saline Flush 10 ML SYR IVP (06:35)
[2022-03-08 07:04] LABS: Abs Immature Grans 0.12 10^3/uL (0.0-0.06); Absolute Basophil Count 0.06 10^3/uL (0.0-0.2); Absolute Eosinophil Count 0.15 10^3/uL (0.0-0.7); Absolute Lymphocyte Count 1.39 10^3/uL (1.2-3.4); Absolute Monocyte Count 1.27 10^3/uL (0.1-0.8); Basophils % 0.5; Eosinophils % 1.2; HCT 38.7 % (40.0-50.0); HGB 13.6 g/dL (13.5-17.5); Lymphocytes % 11.1; MCHC 35.1 % (32.0-36.0); MCV 91.1 fL (80-95); MPV 8.7 fL (8.0-11.0); Monocytes % 10.2; Nucleated RBC 0 %; Platelet Count 390 10^3/uL (130-400); RBC 4.25 10^6/uL (4.36-5.78); RDW 12.8 % (11.8-14.1); RDW-SD 42.2 fL; WBC 12.48 10^3/uL (4.4-10.8)
[2022-03-08 07:06] LABS: Absolute Neutrophil Count 9.48 10^3/uL (1.2-6.7)
[2022-03-08 07:06] LABS: INR 1.1 (0.9-1.1); PTT Activated 43.6 sec (21.0-27.5)
[2022-03-08 07:10] LABS: Hemoglobin A1C 6.3 % (<5.7)
[2022-03-08] MEDS: Aspirin 81 MG CHEW (07:13)
[2022-03-08] MEDS: Clopidogrel 75 MG TAB (07:13)
[2022-03-08 07:32] LABS: D-Dimer 688 ng/mlFEU (<500)
--- NOTE | 2022-03-08 07:47 | NUR.NOTE ---
JESSICA to arrived in 10 minutes for transport to [facility].Nursing Note:
--- NOTE | 2022-03-08 07:49 | DSE_ITS ---
Date of service: 03/08/22 Time of Service: 07:50 DS: Diagnosis Discharge Diagnosis (1) Ventricular tachycardia, sustained: Status: Acute (2) Atypical chest pain: Status: Acute (3) Pneumonia due to COVID-19 virus: Status: Acute (4) Hyponatremia: Status: Acute (5) Hypokalemia: Status: Acute (6) Leukocytosis, unspecified: Status: Chronic (7) Prediabetes: Status: Acute Asessment and Plan: A1C 6.3 - new diagnosis. (8) Obesity (BMI 30-39.9): Status: Chronic (9) Obstructive sleep apnea: Status: Suspected Asessment and Plan: suspected Discharge Plan Disposition Patient Disposition: [facility] Condition: Serious Discharge Details Reason For Visit: Vtach Admit Date/Time: 03/07/22 04:17 Admit Provider: Satish Lopez Attending Provider: Satish Lopez Primary Care Provider: Satish Ruiz [facility] Course Hospital Course: Mr August is a 61 year old male with PMHx of CAD s/p ME in 2012 and a cardiac cath at [facility] last year, as well as h/o HTN, hyperlipidemia, past tobacco abuse, who was not vaccinated against COVID-19 and was admitted to [facility] ICU under the hospitalist service on 03/07/22 for chest pain and episode of sustained Vtach caught on the monitor by EMS. The patient had chest pain at rest at that time lasting for about an hour. He ruled out for ACS by EKGs and troponins, but when his chest pain recurred at our facility, it appeared to be responsive to nitroglycerin. The patient was hypokalemic on presentation, and this was repleted. We initiated metoprolol 50 mg PO q6Hrs with holding parameters per the recommendation of [facility] cardiology in order to keep Vtach from recurring. He still did have several short runs of Vtach (5 beats, 8 beats) while on the monitor since this therapy was initiated. He was also empirically placed on aspirin/plavix/heparin gtt. His statin was continued. He tested positive for COVID-19 in our ED. He did not have oxygen requirement while awake, but when asleep was noted to have O2 sats in the 70s, highlighting a probable underlying THERESE, and for this he was placed on CPAP at our facility while asleep/with naps. His CTA ruled out acute PE, but showed evidence of pneumonia due to COVID-19. While he had a leucocytosis, this is a chronic finding for him, and his procalcitonin was negative - therefore, no antibiotics were started. He was initiated on remdesivir on this admission. The patient's case was reviewed with [facility] cardiology and the patient was accepted in transfer to [facility] cardiology with bed pending for today for further ischemic workup and possible Vtach ablation - accepting MD Dr Stover. Neither cardiac catheterization nor EP evaluation/Vtach ablation would be available at our facility, necessitating this transfer. For his acute on chronic hyponatremia, we held his HCTZ - lisinopril and hydrated him with normal saline with good response. Care for patient as well as completion of his discharge summary on day of transfer took 40 minutes. Please, look at MAR for the list of his inpatient medications. The list of medications below reflects his outpatient prescriptions. Home Meds and New Rx's Prescriptions: No Action amlodipine 10 mg tablet 10 mg PO DAILY 0RF lisinopril-hydrochlorothiazide 20-25 mg tablet 1 tab PO DAILY 0RF aspirin [Aspir-81] 81 MG tablet,delayed release (DR/EC) 1 tab PO DAILY 0RF nitroglycerin [Nitrostat] 0.4 MG tablet, sublingual 1 tab PO PRN [id number] Label Comments: pt states he has not had to use this 01/15/17 metoprolol tartrate 25 MG tablet 50 mg PO DAILY 0RF multivitamin [One Daily] 1 EACH tablet 1 ea PO DAILY 0RF atorvastatin [Lipitor] 40 mg tablet 80 mg PO QPM 0RF Discharge Instructions Referrals: Dax Stover MD [MD CONSULTING PHYSICIAN] - Activity:: Activity as Tolerated Diet:: Low Sodium Discharge Orders Discharge Orders: Discharge Order (Routine); Ordered 03/08/22 Ordered By: Shelia Angeles DS: Summary Time Spent with Patient providing and/or coordinating discharge services: Greater than 30 minutes Status at Discharge Functional status at discharge: independent ambulation Overall status at discharge: patient is not back to baseline Mental Status: mental status grossly normal Speech and Movement: speech and movement normal Mood: congruent mood Affect: normal affect Exam Narrative Exam Narrative: General: Pleasant middle-aged male, appears comfortable in bed, on RA, no SOB/dyspnea/cyanosis, A&Ox3 HEENT: EOMI, MMM Heart: RRR, no m/r/g Lungs: expiratory wheezing B Abdomen: soft, nontender, nondistended Extremities: no edema BLEs (exam as of 03/07/22). Psych Mental Status: mental status grossly normal Speech and Movement: speech and movement normal Mood: congruent mood Affect: normal affect DS: Data Vitals/I&O Vitals and I&O: Vital Signs Temperature 36.4 C L 03/08/22 07:39 Temperature Source Temporal Artery Scan 03/08/22 07:39 Pulse 74 03/08/22 07:39 Pulse 60 03/08/22 05:38 Respiratory Rate 13 03/08/22 07:39 Respiratory Effort 03/08/22 07:39 Respiratory Depth Normal 03/08/22 07:39 Respiratory Pattern Normal 03/08/22 07:39 Blood Pressure 113/66 03/08/22 07:39 Blood Pressure Mean 81 03/08/22 07:39 Blood Pressure Position Supine 03/08/22 07:39 Pulse Oximetry 96 03/08/22 07:39 Oxygen Delivery Method Room Air 03/08/22 07:39 Oxygen Flow Rate 0 03/08/22 07:39 Fraction of Inspired Oxygen (FIO2) 21 03/08/22 04:37 Pain Level 0 03/08/22 07:39 Intake & Output 03/07/22 03/07/22 03/08/22 11:59 23:59 11:59 Intake Total 532.5 / 8234.335 0283.167 / 1728.667 106.2 / 106.2 Output Total 800 / 800 450 / 450 Balance 532.5 / 928.667 396.167 / 928.667 -343.8 / -343.8 Weight 109.8 kg Intake: IV 532.5 / 1428.667 896.167 / 1428.667 106.2 / 106.2 Oral 300 / 300 Output: Urine 800 / 800 450 / 450 Other: Urine Color Yellow Yellow Urine Appearance Clear Clear Urine Odor None None Comment voided 400cc's in urinal. Voiding Methods Urinal Urinal Data Completed and Pending Completed studies during hospitalization [Text1]: CXR: No acute pulmonary findings CTA chest ; Pulmonary opacities suggesting multifocal peripheral pneumonia, please correlate regarding the possibility of COVID.? No evidence of pulmonary embolic disease. Labs on day of discharge: Labs from last 24 hours 03/08/22 03/08/22 03/08/22 06:45 05:55 05:55 WBC 12.48 H D RBC 4.25 L Hgb 13.6 Hct 38.7 L MCV 91.1 MCH 32.0 MCHC 35.1 RDW 12.8 Plt Count 390 D MPV 8.7 Immature Gran % 1.0 Neutrophils % 76.0 Lymphocytes % 11.1 Monocytes % 10.2 Eosinophils % 1.2 Basophils % 0.5 Nucleated RBC % 0 Absolute Neutrophils 9.48 H Absolute Lymphocytes 1.39 Absolute Monocytes 1.27 H Absolute Eosinophils 0.15 Absolute Basophils 0.06 PT 11.0 INR 1.1 APTT 43.6 H D D-Dimer 688 H Sodium Potassium Chloride Carbon Dioxide Anion Gap BUN Creatinine Estimated GFR/1.73 m2 Glucose Hemoglobin A1c Calcium Magnesium Ferritin Total Bilirubin Conjugated Bilirubin AST ALT Alkaline Phosphatase C-Reactive Protein Total Protein Albumin 25-OH Vitamin D Total Pending Urine Color Urine Clarity Urine pH Ur Specific [place] Urine Protein Urine Ketones Urine Blood Urine Nitrite Urine Bilirubin Urine Urobilinogen Ur Leukocyte Esterase Urine Glucose 03/08/22 03/08/22 03/08/22 05:55 05:55 05:35 WBC RBC Hgb Hct MCV MCH MCHC RDW Plt Count MPV Immature Gran % Neutrophils % Lymphocytes % Monocytes % Eosinophils % Basophils % Nucleated RBC % Absolute Neutrophils Absolute Lymphocytes Absolute Monocytes Absolute Eosinophils Absolute Basophils PT INR APTT Cancelled D-Dimer Sodium Pending Potassium Pending Chloride Pending Carbon Dioxide Pending Anion Gap Pending BUN Pending Creatinine Pending Estimated GFR/1.73 m2 Pending Glucose Pending Hemoglobin A1c 6.3 H Calcium Pending Magnesium Pending Ferritin Pending Total Bilirubin Pending Conjugated Bilirubin Pending AST Pending ALT Pending Alkaline Phosphatase Pending C-Reactive Protein Pending Total Protein Pending Albumin Pending 25-OH Vitamin D Total Urine Color Urine Clarity Urine pH Ur Specific [place] Urine Protein Urine Ketones Urine Blood Urine Nitrite Urine Bilirubin Urine Urobilinogen Ur Leukocyte Esterase Urine Glucose 03/07/22 03/07/22 03/07/22 21:05 18:40 14:30 WBC RBC Hgb Hct MCV MCH MCHC RDW Plt Count MPV Immature Gran % Neutrophils % Lymphocytes % Monocytes % Eosinophils % Basophils % Nucleated RBC % Absolute Neutrophils Absolute Lymphocytes Absolute Monocytes Absolute Eosinophils Absolute Basophils PT INR APTT 34.6 H D 25.9 D-Dimer Sodium Potassium Chloride Carbon Dioxide Anion Gap BUN Creatinine Estimated GFR/1.73 m2 Glucose Hemoglobin A1c Calcium Magnesium Ferritin Total Bilirubin Conjugated Bilirubin AST ALT Alkaline Phosphatase C-Reactive Protein Total Protein Albumin 25-OH Vitamin D Total Urine Color Yellow Urine Clarity Clear Urine pH 7.0 Ur Specific [place] 1.010 Urine Protein Negative Urine Ketones Negative Urine Blood Negative Urine Nitrite Negative Urine Bilirubin Negative Urine Urobilinogen 1.0 H Ur Leukocyte Esterase Negative Urine Glucose Negative 03/07/22 03/07/22 08:50 08:50 WBC RBC Hgb Hct MCV MCH MCHC RDW Plt Count MPV Immature Gran % Neutrophils % Lymphocytes % Monocytes % Eosinophils % Basophils % Nucleated RBC % Absolute Neutrophils Absolute Lymphocytes Absolute Monocytes Absolute Eosinophils Absolute Basophils PT INR APTT D-Dimer 541 H Sodium 127 L Potassium 3.8 D Chloride 92 L Carbon Dioxide 28.0 Anion Gap 7.0 BUN 9 Creatinine 0.8 Estimated GFR/1.73 m2 >= 60.00 Glucose 104 D Hemoglobin A1c Calcium 8.1 L Magnesium Ferritin Total Bilirubin Conjugated Bilirubin AST ALT Alkaline Phosphatase C-Reactive Protein Total Protein Albumin 25-OH Vitamin D Total Urine Color Urine Clarity Urine pH Ur Specific [place] Urine Protein Urine Ketones Urine Blood Urine Nitrite Urine Bilirubin Urine Urobilinogen Ur Leukocyte Esterase Urine Glucose 03/07/22 08:50 Blood Blood Culture - Pending Preliminary micro results at discharge 03/07/22 03:15 Blood Culture - Preliminary Blood NO GROWTH 24 HOURS 03/07/22 08:50 Blood Culture - Pending Blood PFSH All Active Problems (Updated 03/08/22 @ 08:03 by Shelia Angeles MD) Obesity (BMI 30-39.9) (Chronic) Prediabetes (Acute) Ventricular tachycardia, sustained (Acute) Discharge planning issues (Acute) DVT prophylaxis (Acute) Atypical chest pain (Acute) Pneumonia due to COVID-19 virus (Acute) Narrow complex tachycardia (Acute) V tach (Chronic) Lab test positive for detection of COVID-19 virus (Acute) Serrated adenoma of colon (Acute) Chest pain (Acute) Arrhythmia (Acute) Hypokalemia (Acute) Hyponatremia (Acute) Leukocytosis, unspecified (Chronic) Medical History CAD (coronary artery disease) 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 Ruiz HTN (hypertension) Hypercholesterolemia Rectal polyp Surgical History Colonoscopy - IV Sedation (01/15/17) Coronary Stent Tonsillectomy Social History Smoking/Tobacco Use Status: Former Tobacco Use Quit Date: 11/29/12 Smoking risk assessment performed?: Yes Alcohol Intake: former Drug use: Never Substance use type: does not use and former substance user Current gender identity: male Do you feel safe at home: Yes Do you feel safe in your relationship?: Yes
[2022-03-08 07:52] LABS: ALT 43 U/L (16-63); AST 25 U/L (15-37); Albumin 3.1 g/dL (3.4-5.0); Alkaline Phosphatase 120 U/L (46-116); Anion Gap 5.8 mmol/L (3-11); BUN 8 mg/dL (7-18); Bilirubin, Total 0.7 mg/dL (0.2-1.0); CO2 29.2 mmol/L (21.0-32.0); CREATININE 0.8 mg/dL (0.70-1.30); Chloride 98 mmol/L (98-107); Ferritin 452 ng/mL (26-388); Glucose 84 mg/dL (74-106); Potassium 3.5 mmol/L (3.5-5.1); Sodium 133 mmol/L (136-145); Total Protein 6.3 g/dL (6.4-8.2)
[2022-03-08] MEDS: Ipratropium/Albuterol 4 GM 120 PUFF INH IH (07:52)
[2022-03-08 08:01] LABS: Bilirubin, Direct 0.2 mg/dL (0.0-0.2); C-Reactive Protein 0.29 mg/dL (0.0-0.3)
--- NOTE | 2022-03-08 08:25 | NUR.NOTE ---
Aida arrives and collects patient to take him to [facility]. RN calls report to [facility].Nursing Note:
[2022-03-09 06:58] LABS: Vitamin D 25 Total 26.5 ng/mL (30-100)
== END 2022-03-08 08:20 | disposition short-term general hospital (02) | DRG 177 ==
LOC: ER 04:41 → ICU 05:53
PROVIDERS: Internal Medicine; Admitting Provider Family Medicine; Emergency Provider Student in an Organized Health Care Education/Training Program; PCP Family Medicine; Visit Provider Family Medicine
DX: U07.1 COVID-19 (principal); J12.82 Pneumonia due to coronavirus disease 2019; E87.1 Hypo-osmolality and hyponatremia; I47.1 Supraventricular tachycardia; I47.2 Ventricular tachycardia; Z28.3 Underimmunization status; E87.6 Hypokalemia; I25.10 Atherosclerotic heart disease of native coronary artery without angina pectoris; I25.2 Old myocardial infarction; I10 Essential (primary) hypertension; E78.00 Pure hypercholesterolemia, unspecified; Z86.010 Personal history of colon polyps; Z87.891 Personal history of nicotine dependence; R73.03 Prediabetes; G47.33 Obstructive sleep apnea (adult) (pediatric)
CPT/HCPCS: 36415; 71275; 80048; 80053; 80076; 82306; 83690; 84145; 85652; 87040; 87635; 93005; 96365; 96366; 99285; 71045; 81003; 82728; 83036; 83735; 83880; 84443; 84484; 85025; 85379; 85610; 85730; 86140; 93010; 94660; 99223; 99239; 99291; J0248; J3480; J3490

== ENCOUNTER 2022-04-01 15:52 | Outpatient (REF) | payer MEDICAID, SELFPAY ==
[2022-04-01 14:28] LABS: Anion Gap 10.7 mmol/L (3-11); BUN 12 mg/dL (7-18); CO2 25.3 mmol/L (21.0-32.0); CREATININE 0.8 mg/dL (0.70-1.30); Calcium 8.2 mg/dL (8.5-10.1); Chloride 103 mmol/L (98-107); Glucose 103 mg/dL (74-106); Potassium 4.3 mmol/L (3.5-5.1); Sodium 139 mmol/L (136-145)
== END 2022-04-01 15:53 | disposition home or self-care (01) ==
LOC: NCHCN 15:52
PROVIDERS: PCP Family Medicine; Visit Provider Family Medicine
DX: I10 Essential (primary) hypertension (principal)
CPT/HCPCS: 80048

== ENCOUNTER 2022-04-24 09:00 | Outpatient (RCR) | payer MEDICAID, SELFPAY | END 2022-04-28 23:59 | disposition home or self-care (01) | LOC: CR 09:00 | PROVIDERS: PCP Family Medicine; Visit Provider Internal Medicine Cardiovascular Disease | DX: Z51.89 Encounter for other specified aftercare (principal); Z95.5 Presence of coronary angioplasty implant and graft; Z95.810 Presence of automatic (implantable) cardiac defibrillator | CPT/HCPCS: S9472 ==

== ENCOUNTER 2022-05-27 09:00 | Outpatient (RCR) | payer MEDICAID, SELFPAY | END 2022-05-28 23:59 | disposition home or self-care (01) | LOC: CR 09:00 | PROVIDERS: PCP Family Medicine; Visit Provider Internal Medicine Cardiovascular Disease | DX: Z51.89 Encounter for other specified aftercare (principal); Z95.5 Presence of coronary angioplasty implant and graft; Z95.810 Presence of automatic (implantable) cardiac defibrillator | CPT/HCPCS: S9472 ==

== ENCOUNTER 2022-06-26 09:00 | Outpatient (RCR) | payer MEDICAID, SELFPAY | END 2022-06-28 23:59 | disposition home or self-care (01) | LOC: CR 09:00 | PROVIDERS: PCP Family Medicine; Referring Provider Internal Medicine Cardiovascular Disease; Visit Provider Internal Medicine Cardiovascular Disease | DX: Z51.89 Encounter for other specified aftercare (principal); Z95.810 Presence of automatic (implantable) cardiac defibrillator; Z95.5 Presence of coronary angioplasty implant and graft | CPT/HCPCS: S9472 ==

== ENCOUNTER 2022-07-08 09:00 | Outpatient (RCR) | payer MEDICAID, SELFPAY | END 2022-07-29 23:59 | disposition home or self-care (01) | LOC: CR 09:00 | PROVIDERS: PCP Family Medicine; Referring Provider Internal Medicine Cardiovascular Disease; Visit Provider Internal Medicine Cardiovascular Disease | DX: Z51.89 Encounter for other specified aftercare (principal); I47.2 Ventricular tachycardia; Z95.810 Presence of automatic (implantable) cardiac defibrillator; Z95.5 Presence of coronary angioplasty implant and graft | CPT/HCPCS: S9472 ==

== ENCOUNTER 2022-07-15 08:26 | Outpatient (CLI) | payer MEDICAID, SELFPAY ==
--- NOTE | 2022-07-15 08:15 | RT.EKG_ITS ---
APPROVED REPORT Exam: Resting ECG Reason for Exam: CAD Patient Location: O HR:57 bpm ECG Measurements Heart Rate 57 AXIS MI 185 P -19 QRSd 95 QRS -11 QT 396 T -14 QTc 386 Conclusion Sinus rhythm...normal P axis, V-rate 50- 99 Inferior infarct, old...Q >35mS, II III aVF
== END 2022-07-15 08:27 | disposition home or self-care (01) ==
LOC: DI.CARD 08:27
PROVIDERS: PCP Family Medicine; Visit Provider Physician Assistant
DX: I25.10 Atherosclerotic heart disease of native coronary artery without angina pectoris (principal); I25.2 Old myocardial infarction
CPT/HCPCS: 93010

== ENCOUNTER 2022-08-28 08:25 | Outpatient (CLI) | payer MEDICAID, SELFPAY ==
--- NOTE | 2022-08-28 08:15 | RT.EKG_ITS ---
APPROVED REPORT Exam: Resting ECG Reason for Exam: VT, CAD Patient Location: O HR:61 bpm ECG Measurements Heart Rate 61 AXIS KS 173 P 41 QRSd 106 QRS 20 QT 405 T 0 QTc 408 Conclusion Sinus rhythm...normal P axis, V-rate 50- 99 Probable left atrial enlargement...P >50mS, <-0.10mV V1 Inferior infarct, old...Q >35mS, II III aVF Baseline wander in lead(s) V4
== END 2022-08-28 08:26 | disposition home or self-care (01) ==
LOC: DI.CARD 08:26
PROVIDERS: PCP Family Medicine; Visit Provider Internal Medicine Cardiovascular Disease
DX: I25.10 Atherosclerotic heart disease of native coronary artery without angina pectoris (principal); I47.2 Ventricular tachycardia; Z95.810 Presence of automatic (implantable) cardiac defibrillator; R94.31 Abnormal electrocardiogram [ECG] [EKG]; I25.2 Old myocardial infarction
CPT/HCPCS: 93010

== ENCOUNTER 2022-12-07 11:30 | Outpatient (REF) | payer MEDICAID, SELFPAY ==
[2022-12-07 14:57] LABS: HCT 44.6 % (40.0-50.0); HGB 15.1 g/dL (13.5-17.5); MCH 32.1 pg (27.0-33.0); MCHC 33.9 % (32.0-36.0); MCV 95 fL (80-95); MPV 9.4 fL (8.0-11.0); Platelet Count 243 10^3/uL (130-400); RDW 12.7 % (11.8-14.1); RDW-SD 44.5 fL; WBC 9.96 10^3/uL (4.4-10.8)
[2022-12-07 15:23] LABS: ALT 34 U/L (16-63); AST 24 U/L (15-37); Albumin 4.3 g/dL (3.4-5.0); Alkaline Phosphatase 107 U/L (46-116); Anion Gap 6.9 mmol/L (3-11); BUN 14 mg/dL (7-18); Bilirubin, Total 0.7 mg/dL (0.2-1.0); CO2 29.1 mmol/L (21.0-32.0); CREATININE 0.9 mg/dL (0.70-1.30); Calcium 8.6 mg/dL (8.5-10.1); Chloride 102 mmol/L (98-107); Estimated GFR 96.57 (mL/min/1.73m2); Glucose 102 mg/dL (74-106); Sodium 138 mmol/L (136-145); Total Protein 7.1 g/dL (6.4-8.2)
[2022-12-07 16:52] LABS: Vitamin D 25 Total 28.6 ng/mL (30-100)
== END 2022-12-07 11:31 | disposition home or self-care (01) ==
LOC: NCHCN 11:30
PROVIDERS: PCP Family Medicine; Visit Provider Family Medicine
DX: D64.9 Anemia, unspecified (principal); D72.829 Elevated white blood cell count, unspecified; R74.8 Abnormal levels of other serum enzymes; E55.9 Vitamin D deficiency, unspecified; I10 Essential (primary) hypertension; R73.09 Other abnormal glucose
CPT/HCPCS: 80053; 82306; 85027

== ENCOUNTER 2022-12-28 09:25 | Emergency (ER) | payer MEDICAID, SELFPAY ==
[2022-12-28] VITALS (35 sets, daily range): BP systolic 97–152; BP diastolic 62–89; PULSE 53–104; RESP 6–23; TEMP 37.2; O2SAT 98
--- NOTE | 2022-12-28 09:15 | RT.EKG_ITS ---
APPROVED REPORT Exam: Resting ECG Reason for Exam: pacemaker issues, doesn't feel right Patient Location: E HR:70 bpm ECG Measurements Heart Rate 70 AXIS IN 186 P 21 QRSd 104 QRS 54 QT 382 T 17 QTc 413 Conclusion Sinus rhythm...normal P axis, V-rate 60- 99
[2022-12-28 10:04] LABS: Abs Immature Grans 0.06 10^3/uL (0.0-0.06); Absolute Basophil Count 0.04 10^3/uL (0.0-0.2); Absolute Eosinophil Count 0.14 10^3/uL (0.0-0.7); Absolute Lymphocyte Count 1.95 10^3/uL (1.2-3.4); Absolute Monocyte Count 1.49 10^3/uL (0.1-0.8); Absolute Neutrophil Count 9.08 10^3/uL (1.2-6.7); Basophils % 0.3; Eosinophils % 1.1; HCT 47.5 % (40.0-50.0); Immature Grans % 0.5; Lymphocytes % 15.3; MCH 32.3 pg (27.0-33.0); MCHC 33.7 % (32.0-36.0); MCV 96 fL (80-95); MPV 9.2 fL (8.0-11.0); Monocytes % 11.7; Neutrophils % 71.1; Platelet Count 278 10^3/uL (130-400); RBC 4.96 10^6/uL (4.36-5.78); RDW 12.9 % (11.8-14.1); RDW-SD 45.6 fL; WBC 12.77 10^3/uL (4.4-10.8)
[2022-12-28 10:25] LABS: ALT 33 U/L (16-63); AST 27 U/L (15-37); Albumin 4.4 g/dL (3.4-5.0); Alkaline Phosphatase 116 U/L (46-116); Anion Gap 6.9 mmol/L (3-11); BUN 16 mg/dL (7-18); Bilirubin, Total 0.9 mg/dL (0.2-1.0); CO2 30.1 mmol/L (21.0-32.0); Calcium 8.9 mg/dL (8.5-10.1); Chloride 100 mmol/L (98-107); Glucose 114 mg/dL (74-106); Magnesium 1.9 mg/dL (1.8-2.4); Potassium 3.5 mmol/L (3.5-5.1); Sodium 137 mmol/L (136-145); Total Protein 7.6 g/dL (6.4-8.2); Troponin I < 50 ng/L (<or=60)
--- NOTE | 2022-12-28 12:34 | ED.GENADUL_ITS ---
Discharge Plan Disposition Patient Disposition: Home Condition: Stable Discharge Details Clinical Impression: Heart palpitations, Encounter for checking and testing of cardiac pacemaker pulse generator [battery] Primary Care Provider: Satish Ruiz ED Provider: Kyle Schmidt Home Meds and New Rx's Prescriptions: Continued famotidine 20 mg tablet 20 mg PO BID losartan 25 mg tablet 50 mg PO DAILY aspirin [Aspir-81] 81 MG tablet,delayed release (DR/EC) 1 tab PO DAILY nitroglycerin [Nitrostat] 0.4 MG tablet, sublingual 1 tab PO PRN PRN Patient Comments: pt states he has not had to use this 01/15/17 multivitamin [One Daily] 1 EACH tablet 1 ea PO DAILY atorvastatin [Lipitor] 40 mg tablet 80 mg PO QPM clopidogrel 75 mg Tablet 75 mg DAILY metoprolol succinate 100 mg Tablet Extended Release 24 Hr 300 mg PO DAILY amlodipine 5 mg tablet 5 mg PO DAILY Patient Comments: TAKE ONE TABLET BY MOUTH EVERY DAY ergocalciferol (vitamin D2) 1,250 mcg (50,000 unit) capsule 1 cap PO QWEEK Patient Comments: TAKE 1 CAPSULE BY MOUTH ONCE WEEKLY cholecalciferol (vitamin D3) [Vitamin D3] 25 mcg (1,000 unit) capsule 1,000 unit PO DAILY Patient Comments: TAKE ONE CAPSULE BY MOUTH EVERY DAY Discharge Instructions Additional Instructions: Please follow-up with your electrophysiology specialist at [facility] [place]. Please contact your primary care physician to arrange follow-up. Call today. Return to the ER immediately for any worsening or new concerning symptoms. Referrals: Satish Ruiz [Primary Care Provider] - Discharge Data Discharge Date/Time-TO BE ENTERED AT DEPARTURE: 12/28/22 12:51 Medical Decision Making 62-year-old male here with chief complaint of palpitations that he is feeling at night and concern for depleted battery. Patient did have an episode where he thought his defibrillator was vibrating. Patient is hemodynamically stable. EKG was reviewed and interpreted by me: Please report, sinus rhythm 70 bpm, not currently extrinsically pacing. ICD was interrogated and I reviewed report: Patient has had no V. fib, V. tach, A. fib or A. tach episodes since 2021. He had A paced approximately 22% of the time. Patient has adequate battery life. I called and spoke with electrophysiology at [facility] [place], discussed ED presentation and course, he will ensure timely outpatient follow-up for device check. HPI General Mode of arrival: ambulatory . Date/Time Provider Initiated Documentation: 12/28/22 09:39 . Limitations to Documentation: no limitations . Information obtained by: patient . HPI Narrative: 62-year-old male here with chief complaint of palpitations that he is feeling at night. Symptoms started a few days agp and have persisted. He is concerned that his pacemaker is pacing too often and that his battery is depleted. Patient did have an episode where he thought his defibrillator was vibrating. No assoc chest pain. Related Data Home Medications Medication Instructions Recorded Confirmed aspirin 81 mg tablet,delayed 1 tab PO DAILY 05/13/16 01/13/23 release (Aspir-) nitroglycerin 0.4 mg sublingual 1 tab PO PRN PRN 05/13/16 01/13/23 tablet (Nitrostat) multivitamin (One Daily tablet) 1 ea PO DAILY 01/15/17 01/13/23 atorvastatin 40 mg tablet (Lipitor) 80 mg PO QPM 12/05/20 01/13/23 clopidogrel 75 mg tablet 75 mg DAILY 03/24/22 01/13/23 metoprolol succinate 100 mg 300 mg PO DAILY 03/24/22 01/13/23 tablet,extended release 24 hr famotidine 20 mg tablet 20 mg PO BID 06/15/22 01/13/23 losartan 25 mg tablet 50 mg PO DAILY 08/28/22 01/13/23 amlodipine 5 mg tablet 5 mg PO DAILY 12/28/22 01/13/23 cholecalciferol (vitamin D3) 25 1,000 unit PO DAILY 12/28/22 01/13/23 mcg (1,000 unit) capsule (Vitamin D3) ergocalciferol (vitamin D2) 1,250 1 cap PO QWEEK 12/28/22 01/13/23 mcg (50,000 unit) capsule Allergies Allergy/AdvReac Type Severity Reaction Status Date / Time No Known Allergies Allergy Verified 01/13/23 09:20 General Stated Complaint: Chest Pain YULIANA: 3 Review of Systems All systems reviewed & are unremarkable except as noted in HPI and below Constitutional Constitutional: Denies fever(s) Cardiovascular Cardiovascular: Denies chest pain PFSH All Active Problems (Updated 01/13/23 @ 09:56 by Chas Hernandez) ICD (implantable cardioverter-defibrillator), dual, in situ (Acute) 03/11/2022 Med[employer]onic Makanda dual lead ICD Heart palpitations (Acute) Encounter for checking and testing of cardiac pacemaker pulse generator [battery] (Acute) Obesity (BMI 30-39.9) (Chronic) Prediabetes (Acute) Ventricular tachycardia, sustained (Acute) ICD [facility] [place] [employer] Model [id number] Serial #[id number] 03/08/22 RH Atypical chest pain (Acute) Pneumonia due to COVID-19 virus (Acute) V tach (Chronic) Lab test positive for detection of COVID-19 virus (Acute) Serrated adenoma of colon (Acute) Chest pain (Acute) Arrhythmia (Acute) Hypokalemia (Acute) Hyponatremia (Acute) Leukocytosis, unspecified (Chronic) Medical History (Updated 01/13/23 @ 09:56 by Chas Hernandez) CAD (coronary artery disease) 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 Ruiz HTN (hypertension) Hypercholesterolemia ICD (implantable cardioverter-defibrillator), single, in situ Medtronic Makanda dual lead ICD 03/11/2022 Myocardial infarction Rectal polyp Surgical History Colonoscopy - IV Sedation (01/15/17) Coronary Stent Tonsillectomy Social History Smoking/Tobacco Use Status: Former Tobacco Use Quit Date: 11/29/12 Smoking risk assessment performed?: Yes Alcohol Intake: former Drug use: Never Substance use type: does not use and former substance user Current gender identity: male Do you feel safe at home: Yes Do you feel safe in your relationship?: Yes Exam Const General: cooperative and no acute distress HENMT Mouth: moist mucous membranes Eyes Conjunctivae: normal conjunctivae Sclera: normal sclerae Resp Auscultation: clear to auscultation bilaterally, no rales, no rhonchi and no wheezes Cardio Rate: regular rate and not tachycardic Rhythm: regular rhythm GI Palpation: soft, not firm, no guarding, not rigid and nontender Skin General skin exam: no rashes or lesions noted Neuro General: patient alert, patient awake and tone normal Extrem General: no edema Psych Appearance: grossly normal Mental Status: mental status grossly normal Course Vital Signs Vital signs: Vital Signs Temperature 37.2 C 12/28/22 09:31 Pulse 104 H 12/28/22 09:31 Respiratory Rate 18 12/28/22 09:31 Blood Pressure 152/76 H 12/28/22 09:31 Pulse Oximetry 98 12/28/22 09:31 Temperature 37.2 C 12/28/22 09:31 Temperature Source Temporal Artery Scan 12/28/22 09:31 Pulse 54 L 12/28/22 11:31 Pulse 59 L 12/28/22 11:40 Respiratory Rate 15 12/28/22 11:40 Respiratory Effort Non-Labored 12/28/22 09:38 Respiratory Depth Normal 12/28/22 09:38 Respiratory Pattern Normal 12/28/22 09:38 Blood Pressure 97/70 L 12/28/22 11:31 Blood Pressure Mean 76 12/28/22 11:31 Blood Pressure Position Sitting 12/28/22 09:31 Pulse Oximetry 98 12/28/22 09:31 Oxygen Delivery Method Room Air 12/28/22 09:31 Oxygen Flow Rate 0 12/28/22 09:31 Lab/Test Results Lab/Test Results: Laboratory Tests Range/Units 12/28/22 12/28/22 09:36 09:36 WBC (4.4-10.8) 10^3/uL 12.77 H RBC (4.36-5.78) 10^6/uL 4.96 Hgb (13.5-17.5) g/dL 16.0 Hct (40.0-50.0) % 47.5 MCV (80-95) fL 96 H MCH (27.0-33.0) pg 32.3 MCHC (32.0-36.0) % 33.7 RDW (11.8-14.1) % 12.9 Plt Count (130-400) 10^3/uL 278 MPV (8.0-11.0) fL 9.2 Immature Gran % 0.5 Neutrophils % 71.1 Lymphocytes % 15.3 Monocytes % 11.7 Eosinophils % 1.1 Basophils % 0.3 Nucleated RBC % (0.0-0.3) % 0.0 Absolute Neutrophils (1.2-6.7) 10^3/uL 9.08 H Absolute Lymphocytes (1.2-3.4) 10^3/uL 1.95 Absolute Monocytes (0.1-0.8) 10^3/uL 1.49 H Absolute Eosinophils (0.0-0.7) 10^3/uL 0.14 Absolute Basophils (0.0-0.2) 10^3/uL 0.04 Sodium (136-145) mmol/L 137 Potassium (3.5-5.1) mmol/L 3.5 Chloride (98-107) mmol/L 100 Carbon Dioxide (21.0-32.0) mmol/L 30.1 Anion Gap (3-11) mmol/L 6.9 BUN (7-18) mg/dL 16 Creatinine (0.70-1.30) mg/dL 1.0 Est GFR (CKD-EPI 2020) (mL/min/1.73m2) 85.10 Glucose (74-106) mg/dL 114 H Calcium (8.5-10.1) mg/dL 8.9 Magnesium (1.8-2.4) mg/dL 1.9 Total Bilirubin (0.2-1.0) mg/dL 0.9 AST (15-37) U/L 27 ALT (16-63) U/L 33 Alkaline Phosphatase (46-116) U/L 116 Troponin I (<or=60) ng/L < 50 Total Protein (6.4-8.2) g/dL 7.6 Albumin (3.4-5.0) g/dL 4.4
== END 2022-12-28 12:51 | disposition home or self-care (01) ==
PROVIDERS: Emergency Provider Student in an Organized Health Care Education/Training Program; PCP Family Medicine
DX: Z45.010 Encounter for checking and testing of cardiac pacemaker pulse generator [battery] (principal); R00.2 Palpitations; I10 Essential (primary) hypertension
CPT/HCPCS: 36415; 80053; 93005; 99283; 83735; 84484; 85025; 93010

== ENCOUNTER 2023-01-05 02:27 | Outpatient (CLI) | payer MEDICAID, SELFPAY ==
--- NOTE | 2023-01-05 | DI.CTLCSR_ITS ---
Exam(s) CT CHEST LUNG CANCER SCREEN EXAM: CT CHEST LUNG CANCER SCREEN CLINICAL HISTORY: SCREENING FOR LUNG CA, FORMER SMOKER, FORMERLY [facility],Z00.00. TECHNIQUE: Imaging Protocol: Low Dose Technique CONTRAST MATERIAL: None COMPARISON: CT CT CHEST PE CTA from 03/07/2022 FINDINGS: CHEST: LUNGS: There are no ominous pulmonary nodules. There is scarring in the left lower lobe extending fro m the superior segment down to the posterior basal segment but not associated with an obvious mass. Also minimal benign-appearing increased subpleural markings in the posterior basal and lateral basal segments of the right lower lobe. No pleural effusions on either side. MEDIASTINUM: There is no obvious hilar nor mediastinal adenopathy. CARDIAC: Bipolar left subclavian pacemaker with lead tips in right atrium and right ventricle. Heart size upper normal. No significant pericardial effusion. Incaliber of the thoracic aorta is within normal limits. OTHER: OSSEOUS: No significant osseous lesions.No fractures.. IMPRESSION: 1. Bilateral benign-appearing lung findings as described above. No new ominous lung nodules nor pleu ral effusions and no intrathoracic adenopathy evident. 2. No pleural effusions. No intrathoracic adenopathy 3. Lung RADS Cat 2 - Benign Appearance / Behavior: Nodules with a very low likelihood of becoming a c linically active cancer due to size or lack of growth Lung-RADS 1.0 CATEGORIES: Category 0 - Prior chest CT exam(s) being located for comparison. Category 1 - Annual screening in 12 months. No nodules or definitely benign nodules. Category 2 - Annual screening in 12 months. Benign appearance. Nodules with low likelihood of becomin g active cancer. Category 3 - 6-month follow-up. Probably benign. Short-term follow-up suggested. Nodules with low lik elihood of becoming active cancer. Category 4A - 3-month follow-up and CT/PET if >8 mm in size. Suspicious finding. Findings which requi re additional testing. Category 4B - Findings which require additional testing and tissue sampling. Category 4X - Category 3 or 4 nodules with additional features or imaging findings that increases the suspicion of malignancy. Modifier S- Potentially clinically significant findings (non lung cancer) RADIATION DOSE DELIVERED: 96mGy.cm Total DLP DATA REPOSITORY: All CT scans at this facility are submitted to the National Radiology Data Registry (NRDR) Dose Index Registry (DIR) with the [employer] ([employer]). RADIATION OPTIMIZATION: All CT scans at this facility use at least one of these dose optimization te chniques: automated exposure control; mA and/or kV adjustment per patient size (includes targeted exa ms where dose is matched to clinical indication); or iterative reconstruction.
== END 2023-01-05 02:47 ==
LOC: DI 02:28
PROVIDERS: PCP Family Medicine; Visit Provider Family Medicine
DX: Z12.2 Encounter for screening for malignant neoplasm of respiratory organs (principal); Z87.891 Personal history of nicotine dependence; R91.8 Other nonspecific abnormal finding of lung field; Z00.00 Encounter for general adult medical examination without abnormal findings
CPT/HCPCS: 71271

== ENCOUNTER 2023-12-27 14:41 | Outpatient (REF) | payer MEDICAID, SELFPAY ==
[2023-12-27 16:27] LABS: Anion Gap 11.6 mmol/L (3-11); BUN 11 mg/dL (7-18); CO2 26.4 mmol/L (21.0-32.0); CREATININE 0.9 mg/dL (0.70-1.30); Calcium 8.5 mg/dL (8.5-10.1); Calculated LDL 71 mg/dL (<100); Chloride 102 mmol/L (98-107); Cholesterol 134 mg/dL (<200); Estimated GFR 95.97 (mL/min/1.73m2); Glucose 112 mg/dL (74-106); HDL Cholesterol 49 mg/dL (40-60); Potassium 4.1 mmol/L (3.5-5.1); Sodium 140 mmol/L (136-145); Triglyceride 71 mg/dL (<150)
[2023-12-27 16:43] LABS: Hemoglobin A1C 5.6 % (<5.7)
[2023-12-27 17:49] LABS: Vitamin D 25 Total 40.1 ng/mL (30-100)
== END 2023-12-27 14:42 | disposition home or self-care (01) ==
LOC: NCHCN 14:41
PROVIDERS: PCP Family Medicine; Visit Provider Family Medicine
DX: I10 Essential (primary) hypertension (principal); I25.10 Atherosclerotic heart disease of native coronary artery without angina pectoris; E55.9 Vitamin D deficiency, unspecified; R73.03 Prediabetes
CPT/HCPCS: 80048; 80061; 82306; 83036

== ENCOUNTER 2024-07-03 18:47 | Outpatient (REF) | payer MEDICAID, SELFPAY ==
[2024-07-03 16:40] LABS: Anion Gap 5.7 mmol/L (3-11); BUN 9 mg/dL (7-18); CO2 30.3 mmol/L (21.0-32.0); CREATININE 0.9 mg/dL (0.70-1.30); Chloride 104 mmol/L (98-107); Estimated GFR 95.97 (mL/min/1.73m2); Glucose 100 mg/dL (74-106); Potassium 4.5 mmol/L (3.5-5.1); Sodium 140 mmol/L (136-145)
== END 2024-07-03 18:48 | disposition home or self-care (01) ==
LOC: NCHCN 18:47
PROVIDERS: PCP Student in an Organized Health Care Education/Training Program; Visit Provider Student in an Organized Health Care Education/Training Program
DX: I10 Essential (primary) hypertension (principal)
CPT/HCPCS: 80048

== ENCOUNTER 2024-07-26 01:42 | Outpatient (CLI) | payer MEDICAID, SELFPAY ==
--- NOTE | 2024-07-26 08:59 | DI.CTLCSR_ITS ---
Exam(s) CT CHEST LUNG CANCER SCREEN EXAM: CT CHEST LUNG CANCER SCREEN CLINICAL HISTORY: Z87.891 Personal HX of nicotine dependence. TECHNIQUE: Imaging Protocol: Low Dose Technique CONTRAST MATERIAL: None COMPARISON: CT CT CHEST LUNG CANCER SCREEN from 01/05/2023 FINDINGS: CHEST: LUNGS: In the left lung there is increased but benign-appearing atelectasis-infiltrate in the lingula r segment. Previously described scarring in the left lower lobe is again noted.. There are no confl uent infiltrates. In the opposite-right lung there are mild increased subpleural markings in the rig ht lower lobe posterior basal segment. There is also a small 3 mm noncalcified nodule now evident in the right parahilar region (series 8/image 33), specifically in the right middle lobe medial aspect. No other new lung nodules. No new findings in the trachea and mainstem bronchi. There is no bronc hiectasis. No pleural effusions.. MEDIASTINUM: There is no obvious hilar nor mediastinal adenopathy. CARDIAC: Heart size upper normal. Pacemaker wires again noted.Caliber of the thoracic aorta is withi n normal limits. OTHER: Cardiac pacemaker wires again noted. OSSEOUS: No significant osseous lesions.No fractures.. IMPRESSION: 1. There is a single new small 3 mm noncalcified nodule in the medial segment of the right middle lob e. No other additional new nodules 2. No pleural effusions nor intrathoracic adenopathy evident. 3. Lung RADS Cat 3 - Probably Benign: Probably benign finding(s) - short term follow-up suggested; in clude nodules with a low likelihood of becoming a clinically active cancer. Recommend repeat CT scan in 6 months Lung-RADS 1.0 CATEGORIES: Category 0 - Prior chest CT exam(s) being located for comparison. Category 1 - Annual screening in 12 months. No nodules or definitely benign nodules. Category 2 - Annual screening in 12 months. Benign appearance. Nodules with low likelihood of becomin g active cancer. Category 3 - 6-month follow-up. Probably benign. Short-term follow-up suggested. Nodules with low lik elihood of becoming active cancer. Category 4A - 3-month follow-up and CT/PET if >8 mm in size. Suspicious finding. Findings which requi re additional testing. Category 4B - Findings which require additional testing and tissue sampling. Category 4X - Category 3 or 4 nodules with additional features or imaging findings that increases the suspicion of malignancy. Modifier S- Potentially clinically significant findings (non lung cancer) RADIATION DOSE DELIVERED: 115.67mGy.cm Total DLP DATA REPOSITORY: All CT scans at this facility are submitted to the National Radiology Data Registry (NRDR) Dose Index Registry (DIR) with the [employer] (A[employer]). RADIATION OPTIMIZATION: All CT scans at this facility use at least one of these dose optimization te chniques: automated exposure control; mA and/or kV adjustment per patient size (includes targeted exa ms where dose is matched to clinical indication); or iterative reconstruction.
== END 2024-07-26 02:02 ==
LOC: DI 01:42
PROVIDERS: PCP Student in an Organized Health Care Education/Training Program; Visit Provider Student in an Organized Health Care Education/Training Program
DX: Z12.2 Encounter for screening for malignant neoplasm of respiratory organs (principal); Z87.891 Personal history of nicotine dependence; R91.8 Other nonspecific abnormal finding of lung field
CPT/HCPCS: 71271

== ENCOUNTER 2024-08-30 01:04 | Outpatient (CLI) | payer MEDICAID, SELFPAY | END 2024-08-30 01:24 | PROVIDERS: PCP Student in an Organized Health Care Education/Training Program; Visit Provider Internal Medicine Cardiovascular Disease | DX: Z95.810 Presence of automatic (implantable) cardiac defibrillator (principal); I25.10 Atherosclerotic heart disease of native coronary artery without angina pectoris | CPT/HCPCS: 93306 ==

== ENCOUNTER 2025-01-09 13:31 | Outpatient (REF) | payer MEDICAID, SELFPAY ==
[2025-01-09 15:03] LABS: Anion Gap 6.9 mmol/L (3-11); BUN 13 mg/dL (7-18); CO2 28.1 mmol/L (21.0-32.0); Calcium 9.2 mg/dL (8.5-10.1); Chloride 103 mmol/L (98-107); Estimated GFR 84.05 (mL/min/1.73m2); Glucose 96 mg/dL (74-106); Potassium 4.7 mmol/L (3.5-5.1); Sodium 138 mmol/L (136-145)
[2025-01-09 15:08] LABS: Hemoglobin A1C 5.8 % (<5.7)
== END 2025-01-09 13:32 | disposition home or self-care (01) ==
LOC: NCHCN 13:31
PROVIDERS: PCP Student in an Organized Health Care Education/Training Program; Visit Provider Student in an Organized Health Care Education/Training Program
DX: I10 Essential (primary) hypertension (principal); R73.03 Prediabetes
CPT/HCPCS: 80048; 83036

== ENCOUNTER 2025-02-01 01:46 | Outpatient (CLI) | payer MEDICAID, SELFPAY ==
--- NOTE | 2025-02-01 | DI.CT_ITS ---
Exam(s) CT CHEST WO EXAM: CT CHEST WO CLINICAL HISTORY: R91.1 Solitary pulmonary nodule. TECHNIQUE: Multi planar reconstructions were performed. CONTRAST MATERIAL: None COMPARISON: CT CT CHEST LUNG CANCER SCREEN from 07/26/2024 FINDINGS: CHEST: LUNGS: Compared to the CT scan of 07/26/2024 there is 3 millimeter nodule in the right lung the right middle lobe remains unchanged. Increased markings in the posterior basal segment of the right lower lobe are again noted. No pleural effusion. In the opposite-left lung there is mild benign-appearin g pleural thickening posteriorly in the upper lobe. Atelectasis may and mild infiltrate in the left upper lobe and lingular segment appear unchanged from previous. No new significant left lung finding s. No pleural effusions. MEDIASTINUM: There is no new hilar nor mediastinal adenopathy. Visualized thyroid unremarkable.No obv ious axillary adenopathy CARDIAC: Heart size upper normal. No significant pericardial effusion. Cardiac pacemaker wires agai n noted.Caliber of the thoracic aorta is within normal limits. VISUALIZED UPPER ABDOMEN:No adrenal masses. Spleen size normal. OSSEOUS: No significant osseous lesions.No fractures.. IMPRESSION: 1. Compared to CT scan of June 2024 there is stable appearance of the previously described benign-a ppearing 3 millimeter nodule in the right parahilar region/right middle lobe. There is also stable a ppearance of markings in the right lower lobe and in the left upper lobe and lingular segment of the left lung. 2. There are no pleural effusions nor new intrathoracic adenopathy. RADIATION DOSE DELIVERED: 366.11mGy.cm Total DLP DATA REPOSITORY: All CT scans at this facility are submitted to the National Radiology Data Registry (NRDR) Dose Index Registry (DIR) with the [employer] ([employer]). RADIATION OPTIMIZATION: All CT scans at this facility use at least one of these dose optimization te chniques: automated exposure control; mA and/or kV adjustment per patient size (includes targeted exa ms where dose is matched to clinical indication); or iterative reconstruction.
== END 2025-02-01 02:06 ==
LOC: DI 01:46
PROVIDERS: PCP Student in an Organized Health Care Education/Training Program; Visit Provider Student in an Organized Health Care Education/Training Program
DX: R91.1 Solitary pulmonary nodule (principal)
CPT/HCPCS: 71250

== ENCOUNTER 2025-03-14 08:56 | Outpatient (CLI) | payer MEDICAID, SELFPAY ==
--- NOTE | 2025-03-14 08:45 | RT.EKG_ITS ---
APPROVED REPORT Exam: Resting ECG Reason for Exam: VT Patient Location: O HR:72 bpm ECG Measurements Heart Rate 72 AXIS TX 99 P [id number] QRSd 105 QRS 29 QT 379 T -5 QTc 415 Conclusion Atrial-paced complexes...other complexes also detected Ventricular trigeminy...trigeminy string>6 w/ V complexes
== END 2025-03-14 08:57 | disposition home or self-care (01) ==
LOC: DI.CARD 08:56
PROVIDERS: PCP Student in an Organized Health Care Education/Training Program; Visit Provider Student in an Organized Health Care Education/Training Program
DX: Z95.810 Presence of automatic (implantable) cardiac defibrillator
CPT/HCPCS: 93010

== ENCOUNTER 2025-06-12 07:52 | Outpatient (CLI) | payer MEDICAID, SELFPAY ==
--- NOTE | 2025-06-12 07:45 | RT.EKG_ITS ---
APPROVED REPORT Exam: Resting ECG Reason for Exam: ASCVD Patient Location: O HR:78 bpm ECG Measurements Heart Rate 78 AXIS ND 169 P 43 QRSd 101 QRS 54 QT 381 T -43 QTc 434 Conclusion Atrial-paced complexes...other complexes also detected ventricular premature complexes...V complexes w/ short R-R intervls Probable left atrial enlargement...P >50mS, <-0.10mV V1 Minor nondiagnostic ST abnormalities
== END 2025-06-12 07:53 | disposition home or self-care (01) ==
LOC: DI.CARD 07:53
PROVIDERS: PCP Student in an Organized Health Care Education/Training Program; Visit Provider Internal Medicine Cardiovascular Disease
DX: Z95.810 Presence of automatic (implantable) cardiac defibrillator; I21.9 Acute myocardial infarction, unspecified
CPT/HCPCS: 93010

== ENCOUNTER → 2025-10-17 10:04 | Outpatient (BNVA) | payer MEDICARE, MEDICAID, SELFPAY | PROVIDERS: PCP Student in an Organized Health Care Education/Training Program; Referring Provider Student in an Organized Health Care Education/Training Program; Visit Provider Registered Nurse | DX: I21.9 Acute myocardial infarction, unspecified (principal); Z45.02 Encounter for adjustment and management of automatic implantable cardiac defibrillator | CPT/HCPCS: 93283 ==